=== PATIENT | male | born 1940 | race Caucasian/White ===

== ENCOUNTER → 2017-01-21 | Outpatient (CLI) | payer OTHER | LOC: CAT 10:04 | DX: I25.10 Atherosclerotic heart disease of native coronary artery without angina pectoris (principal); I70.0 Atherosclerosis of aorta ==

== ENCOUNTER 2018-07-03 15:40 | Emergency (ER) | payer OTHER ==
[~2018-07-03] VITALS: Ht 177.8 cm; Wt 69.0 kg
[2018-07-03 17:48] VITALS: BP 132/72
== END 2018-07-03 17:48 | disposition home or self-care (01) ==
LOC: ER 15:40
DX: R04.0 Epistaxis (principal); I48.91 Unspecified atrial fibrillation; E03.9 Hypothyroidism, unspecified

== ENCOUNTER → 2019-07-04 | Outpatient (CLI) | payer OTHER | LOC: CAT 07-03 14:15 | DX: J84.9 Interstitial pulmonary disease, unspecified (principal); I51.7 Cardiomegaly; I25.10 Atherosclerotic heart disease of native coronary artery without angina pectoris; M41.84 Other forms of scoliosis, thoracic region ==

== ENCOUNTER 2019-08-15 09:45 | Inpatient (IN) | payer OTHER ==
[~2019-08-15] VITALS: Ht 175.3 cm; Wt 60.6 kg
--- NOTE | ~2019-08-15 | EMS ---
[address] [address] EMS Patient Care Report Name: AARON SEVERINO Room #: REG CHASE Esqueda#: [id number] Admission: 08/15/19 Attend Phys: Discharge: Date of : 38 Report #: [id number] THIS REPORT FOR: //name// Report Transmitted: 08/15/2019 10:20 EMS Care Summary [facility] MED-ACT Incident [id number] @ 08/15/2019 08:54 Incident Location [address] [place] [address] [place] [address] Patient AARON SEVERINO Male, 78 Years 1940 Patient Address [address] [place] [address] [place] [address] Patient History Chronic Obstructive Pulmonary Disease (COPD),Hyperthyroidism,Atrial Fibrillation, Patient Allergies No known allergies, Patient Medications Levothyroxine, Diltiazem, Iron, Chief Complaint Dizziness Disposition Transported No Lights/[place] Reason Stroke/CVA Transported To [facility] Narrative Arrived on scene to find a 78 year old male patient that was sitting on a chair in the dining room. Patient was able to track EMS upon entering the room and was speaking in clear sentences. Patient had a negative stroke scale, He had 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 No slurred speech or inability to form sentences. He denied any chest pain, or shortness of breath, but was tachypneic, and shallow breathing. He was placed on a nasal cannula and tolerated it well. 12 lead ecg was unremarkable. He did present with tachycardia and hypotension. Patient explained that he attempted to go to the restroom and have a bowel movement. He was unable to and when he stood up he fell to the ground. His explained that he tends to always have low blood pressure, and receives nursing care at home daily. He has not been able to tolerate oral fluids and due to symptoms it is recommended that he be transported to the hospital. Patient and were very hesitant on being transported. EMS and fire remained on scene extended After explaining the extent of his symptoms and that this is much more that just a coincidental syncopal episode. He was experiencing on going symptoms and if he did not receive medical intervention he would continue to fall and could potentially be In much worse condition. After contacting the nursing service that cares for him during the day, and addressing the concerns that the patient had and wanting to stay at home and receive treatment at home. The nurse explained that she would not be able to treat him without physician orders and she would call and explain the situation to his physician but is unsure how long it would be before she received further instructions on how to treat him. After speaking with the nurse and the patient understanding the situation he consented to be transported and was given a fluid challenge with favorable out come upon arrival at the hospital. At destination report was given to ED RN at bedside and patient signed EPCR. Initial Vitals @09:28P: 89,R: 22,BP: 92/63,Pain: 0/10,MO Suspected: false @09:30P: 25,Pain: 0/10,GCS: 15,SpO2: 79, @09:08P: 145,R: 22,BP: 69/47,Pain: 0/10,GCS: 15,SpO2: 86,Revised Trauma: 10,MO Suspected: false @09:39P: 95,R: 18,BP: 101/69,Pain: 0/10,GCS: 15,SpO2: 99,Revised Trauma: 12,MO Suspected: false @09:12P: 105,R: 18,Pain: 0/10,GCS: 15,SpO2: 92,MO Suspected: false @09:17P: 111,R: 18,BP: 74/44,Pain: 0/10,GCS: 15,SpO2: 96,Revised Trauma: 10, @09:02P: 65,R: 22,BP: 66/40,Pain: 0/10,GCS: 15,SpO2: 78,Revised Trauma: 10,MO Suspected: false @09:07P: 111,R: 22,Pain: 0/10,GCS: 15, @09:36P: 68,R: 18,BP: 98/53,Pain: 0/10,GCS: 15,Glucose: 94,SpO2: 98,Revised Trauma: 12, [address] [address] EMS Patient Care Report Name: AARON SEVERINO Room #: REG CHASE Esqueda#: [id number] Admission: 08/15/19 Attend Phys: Discharge: Date of : 38 Report #: [id number] Assessments @09:12MENTAL:Person Oriented,Time Oriented,Event Oriented,Place Oriented,SKIN:Cold,Cyanotic,Pale,HEENT:LUNG SOUNDS:General: No Abnormalities,ABDOMEN:General: No Abnormalities,PELVIS//GI:EXTREMITIES:Capillary Refill: Right Upper: < 2 Sec,Capillary Refill: Left Upper: < 2 Sec,PULSE:Brachial: 2+ Normal,Radial: 2+ Normal,NEURO:@09:38MENTAL:Time Oriented,Person Oriented,Place Oriented,Event Oriented,SKIN:HEENT:LUNG SOUNDS:ABDOMEN:PELVIS//GI:EXTREMITIES:Capillary Refill: Right Upper: < 2 Sec,Capillary Refill: Left Upper: < 2 Sec,PULSE:Brachial: 2+ Normal,Radial: 2+ Normal,NEURO: Impression Syncope / Fainting Procedures @09:0712-Lead ECGResponse: UnchangedSucceeded@09:20Normal Saline (.9% NaCl) 25cc (20 ga) Site: Antecubital-RightResponse: ImprovedSucceeded@09:17Oxygen FlowRate: 4 Device: Nasal Cannula (NC) Response: ImprovedSucceeded Timeline 08:52,Call Received 08:52,Psap Call 08:54,Dispatched 08:55,En Route 09:00,On Scene 09:01,At Patient 09:02,BP: 66/40 M,PULSE: 65,RR: 22 R,SPO2: 78 Ox,ETCO2: ,BG: ,PAIN: 0,GCS: 15, 09:07,12-Lead ECG,Response: UnchangedSucceeded, 09:07,BP: / M,PULSE: 111,RR: 22 R,SPO2: Ox,ETCO2: ,BG: ,PAIN: 0,GCS: 15, 09:08,BP: 69/47 M,PULSE: 145,RR: 22 R,SPO2: 86 Ox,ETCO2: ,BG: ,PAIN: 0,GCS: 15, 09:12,BP: / M,PULSE: 105,RR: 18 R,SPO2: 92 Ox,ETCO2: ,BG: ,PAIN: 0,GCS: 15, 09:17,Oxygen FlowRate: 4 Device: Nasal Cannula (NC) Response: ImprovedSucceeded, 09:17,BP: 74/44 M,PULSE: 111,RR: 18 R,SPO2: 96 Ox,ETCO2: ,BG: ,PAIN: 0,GCS: 15, 09:20,Normal Saline (.9% NaCl) 25cc 20 ga Site: Antecubital-Right,Response: ImprovedSucceeded, 09:28,BP: 92/63 M,PULSE: 89,RR: 22 R,SPO2: Ox,ETCO2: ,BG: ,PAIN: 0,GCS: , 09:30,Depart Scene 09:30,BP: / M,PULSE: 25,RR: R,SPO2: 79 Ox,ETCO2: ,BG: ,PAIN: 0,GCS: 15, 09:36,BP: 98/53 M,PULSE: 68,RR: 18 R,SPO2: 98 Ox,ETCO2: ,B,PAIN: 0,GCS: 15, 09:39,BP: 101/69 M,PULSE: 95,RR: 18 R,SPO2: 99 Ox,ETCO2: ,BG: ,PAIN: 0,GCS: 15, 09:43,At Destination 10:00,Call Closed 10:00,Transfer Patient Disclaimer [address] [address] EMS Patient Care Report Name: AARON SEVERINO Room #: REG CHASE Esqueda#: [id number] Admission: 08/15/19 Attend Phys: Discharge: Date of : 38 Report #: [id number] v1.1 Copyright 2020 [employer] This EMS Care Summary contains data elements from the applicable legal record (which may be displayed differently). It is designed to provide pertinent information for the following purposes: continuity of care, clinical quality, and state data reporting. The complete legal record is available to ED staff and administrators of the receiving hospital in [employer] Patient Tracker. All data is provided "as is."
[2019-08-15 09:46] VITALS: BP 87/57
[2019-08-15] MEDS ORDERED: DILTIAZEM ER180 M2 PO (10:19)
[2019-08-15 10:20] LABS: ABSOLUTE NEUTROPHILS 2.6 thou/uL (1.4-8.2); BASOPHILS 1.5 % (0.0-2.0); EOSINOPHILS 0.5 % (0.0-3.0); HEMOGLOBIN 10.8 gm/dL (14.0-18.0); LYMPHOCYTES 11.5 % (24.0-44.0); MCHC 31.8 g/dL (28.0-37.0); MCV 75.5 fL (80.0-100.0); MONOCYTES 8.4 % (1.0-8.0); PLATELET COUNT 130 thou/uL (150-400); POLYS 78.1 % (36.0-66.0); RDW 17.1 % (10.5-14.5); WBC 3.3 thou/uL (4.0-11.0)
[2019-08-15] MEDS ORDERED: LEVOXYL50 MCG PO (10:23)
[2019-08-15] MEDS ORDERED: IRON18 M1 PO (10:24)
[2019-08-15] MEDS ORDERED: PREDNISONE 5 MG5 M1 PO (10:26)
[2019-08-15 10:27] LABS: ANION GAP 5 mmol/L (7-16); BUN 12 mg/dL (7-18); CALCIUM 8.9 mg/dL (8.5-10.1); CHLORIDE 101 mmol/L (98-107); CO2 29 mmol/L (21-32); CREATININE 0.8 mg/dL (0.7-1.3); GLUCOSE 111 mg/dL (74-106); POTASSIUM 4.2 mmol/L (3.5-5.1); SODIUM 135 mmol/L (136-145)
[2019-08-15] MEDS ORDERED: PROTONIX40 M2 PO (10:27)
[2019-08-15] MEDS ORDERED: FLOMAX0.4 MG PO (10:27)
[2019-08-15 10:35] LABS: TROPONIN-I <0.06 ng/mL (<0.06)
--- NOTE | 2019-08-15 10:35 | NUR ---
SPOKE WITH PT , ELSIE SEVERINO: STATED PT WAS ADMITTED TO [facility] IN [facility] [place]UL[place] FOR INCREASED # OF FALLS WAS THERE FOR 4 DAYS. WHILE IN HOSP CONTRACTED [employer] AND A FUNGAL INFECTION. STATES PT WAS REFUSING MOST FOOD WHILE IN HOSP AND WOULD MOSTLY ONLY EAT JELLO OFF HIS TRAY. SENT HOME FIR 3DAYS. THEN [facility] BUILD STREGNTH, STABILIZE LOW BP, AND BECOME MORE STEADY. THERE FOR 11 DAYS RETURNED HOME 08/12/19 AND HAD PT COMING INTO HOME. STATES HE HAD BEEN EATING WELL FOR HER AND DRINKING ALMOST ALL THE WATER HE WAS RECOMMENDED TO QDAY. NO OTHER SYMPTOMS UNTIL TODAY
[2019-08-15 13:54] VITALS: BP 104/75
[2019-08-15 14:14] VITALS: BP 123/74
[2019-08-15 15:13] VITALS: BP 119/76
--- NOTE | 2019-08-15 15:54 | EKG ---
[facility] [place] [address] ELECTROCARDIOGRAM REPORT Name: AARON SEVERINO Room #: 363-P ADM IN M.R.#: [id number] Admission: 08/15/19 Attend Phys: Bigg Ascencio MD Discharge: Date of : 38 Report #: [id number] THIS REPORT FOR: cc: Marino,Tyrone Pichardo,Tyrone Marie,Juan M Ramos MD ~ THIS REPORT FOR: //name// [facility] ED Test Date: 2019-08-15 Test Time: 09:50:02 Pat Name: AARON SEVERINO Department: Room: [facility] Gender: M Rn Bone Marrow Transplant: JMitzi : 1940 Requested By: Titi Birmingham Order Number: [id number] MD: Juan M Marie Measurements Intervals [place] Rate: 149 P: [place]: QRS: -51 QRSD: 93 T: -1 QT: 383 QTc: 603 Interpretive Statements Atrial fibrillation with rapid V-rate Paired ventricular premature complexes Left axis deviation Low voltage, extremity leads Probable anteroseptal infarct, old Borderline T abnormalities, inferior leads No previous ECG available for comparison Electronically Signed On 08-15-2019 15:52:52 CDT by Juan M Marie [email or web address] <ELECTRONICALLY SIGNED> By: Juan M Marie MD 08/15/19 1552 0950 0950 Juan M Marie MD /EPI
[2019-08-15 16:03] LABS: APTT 31.4 Seconds (24.5-32.8); INR 1.2; PROTIME 12.2 Seconds (9.3-11.4)
[2019-08-15 17:28] LABS: ALBUMIN 3.3 g/dL (3.4-5.0); DIRECT BILIRUBIN 0.2 mg/dL (<0.1-0.2); TOTAL BILIRUBIN 0.8 mg/dL (<0.1-1.0); TOTAL PROTEIN 6.9 g/dL (6.4-8.2)
--- NOTE | 2019-08-15 18:33 | NUR ---
ASSUMED CARE OF PT ON ARRIVAL TO UNIT AT APPROX 1530. PT AOX3 IN NO ACUTE DISTRESS. VOICING NO COMPLAINTS. VITALS STABLE. BREATHING COMFORTABLY ON 2L NC. DOWN FOR CT CURRENTLY. MED REC REQUEST FAXED TO [facility]. CARDIOLOGY CONSULTED FOR AFIB - NOW CONTROLLED AFIB ON TELE. GOOD APPETITE. USING URINAL. IV FLUIDS INFUSING PER ORDER. WILL CONT TO MONITOR.
[2019-08-15 20:35] VITALS: BP 99/66
[2019-08-15 23:27] VITALS: BP 116/77; BP 16/77
[2019-08-16 04:49] LABS: ANION GAP 7 mmol/L (7-16); BUN 9 mg/dL (7-18); CALCIUM 8.2 mg/dL (8.5-10.1); CHLORIDE 105 mmol/L (98-107); CO2 28 mmol/L (21-32); CREATININE 0.7 mg/dL (0.7-1.3); GLUCOSE 64 mg/dL (74-106); MAGNESIUM 1.7 mg/dL (1.8-2.4); SGOT 32 U/L (15-37); SGPT 15 U/L (30-65); SODIUM 140 mmol/L (136-145); TOTAL BILIRUBIN 0.9 mg/dL (<0.1-1.0); TOTAL PROTEIN 6.9 g/dL (6.4-8.2); TROPONIN-I <0.06 ng/mL (<0.06)
[2019-08-16 05:05] VITALS: BP 120/84
[2019-08-16 05:06] LABS: HEMOGLOBIN 10.7 gm/dL (14.0-18.0); MCH 24.4 pg (26.0-34.0); MCHC 31.6 g/dL (28.0-37.0); MCV 77.2 fL (80.0-100.0); RBC 4.4 mil/uL (4.50-6.00); RDW 17.3 % (10.5-14.5)
[2019-08-16 08:05] VITALS: BP 135/88
[2019-08-16 08:10] VITALS: BP 147/96
[2019-08-16 08:15] VITALS: BP 71/33
[2019-08-16 12:17] VITALS: BP 125/75
--- NOTE | 2019-08-16 13:16 | NUR ---
INITIAL ASSESSMENT: SW reviewed chart and spoke with nursing and attending physician. Pt is currently in Enhanced Isolation to r/o COVID-19. Pt is currently on O2. Pt with hx of pulmonary fibrosis/a-fib. Cardiology consulted. SW spoke with pt via phone. Introduced role of SW. Pt is alert/orientated x 4. Pt reports he lives at home with his . Prior to admission, pt was using a walker to assist with ambulation. Pt states he has a few steps that he is able to navigate independently. Pt was recently discharged home [facility] with HH services. Pt is unable to recall name of HH provider. Pt was not on O2 prior to admission. Pt's PCP is Dr. Tyrone Pichardo. SW attempted to reach pt's via phone ([phone]) to obtain name of HH agency. No option to leave voice message. RAS is following to assist as needed with discharge planning.
--- NOTE | 2019-08-16 14:31 | EKG ---
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: [facility] : 1940 Requested By: Bigg Ascencio Order Number: [id number] MD: Avi Ha Measurements Intervals [place] Rate: 112 P: [place]: QRS: -44 QRSD: 101 T: -1 QT: 369 QTc: 504 Interpretive Statements Atrial fibrillation Low voltage, extremity leads Compared to ECG 08/15/2019 09:50:02 No significant change was found Electronically Signed On 08-16-2019 14:29:27 CDT by Avi Ha [email or web address] <ELECTRONICALLY SIGNED> By: Avi Ha MD, FACC 08/16/19 1429 0808 0808 Avi Ha MD, [facility] /EPI
[2019-08-16 15:08] LABS: % SATURATION 14 % (20-39); IRON 31 ug/dL (65-175); TIBC 219 ug/dL (250-450)
[2019-08-16 15:24] LABS: FOLIC ACID 12.5 ng/mL (8.6-58.9)
[2019-08-16 20:01] VITALS: BP 117/81
[2019-08-17] VITALS (12 sets, daily range): BP systolic 77–127; BP diastolic 52–72
[2019-08-17 05:57] LABS: CREATININE 0.5 mg/dL (0.7-1.3); MAGNESIUM 1.6 mg/dL (1.8-2.4)
--- NOTE | 2019-08-17 06:27 | NUR ---
ASSESSMENT: PT TRAMSFERRED FROM [facility] WITH NEGATIVE RESULT OF COVID-19. PT IS ALERT AND ORIENT TIMES THREE. VSS, AFEBRILE. DENIES PAIN. DOES HAVE SOB WITH EXERTION WHILE IN BED. GROIN AREA RED, NYSTATIN POWDER ORDERED AND APPLIED TO HIS GROIN. AFIB PER MONITOR. DENIES SYNCOPE EPISODES. YET DID NOT GET OUT OF BED. WILL CONTINUE TO MONITOR.
--- NOTE | 2019-08-17 10:27 | 2DMMODE ---
[facility] [address] [place] [address] 2 D/M-MODE ECHOCARDIOGRAM Name: AARON SEVERINO Room #: 205-P ADM IN M.R.#: [id number] Admission: 08/15/19 Attend Phys: Bigg Ascencio MD Discharge: Date of : 38 Report #: [id number] THIS REPORT FOR: cc: Tyrone Pichardo MD, Bradley MD Lammoglia, Francisco J. MD ~ APPROVED REPORT Study performed: 08/17/2019 09:31:43 EXAM: Comprehensive 2D, Doppler, and color-flow Echocardiogram Patient Location: Bedside Room #: 205 Status: routine BSA: 1.58 HR: 81 bpm BP: 117/71 mmHg Rhythm: Atrial Fibrillation Other Information Study Quality: Good/patient sitting up in bed. Indications Afib with RVR, near syncope, cardiomegaly per Xray. Hx: Afib, COPD, ETOH abuse. 2D Dimensions RVDd: 43.28 mm IVSd: 10.02 (7-11mm) LVOT Diam: 24.97 (18-24mm) LVDd: 51.98 mm PWd: 9.75 (7-11mm) Ascending Ao: 44.54 (22-36mm) LVDs: 37.22 (25-40mm) Aortic Root: 47.10 mm Volumes Left Atrial Volume (Systole) Single Plane 4CH: 65.54 mL Single Plane 2CH: 69.98 mL LA ESV Index: 45.00 mL/m2 Aortic Valve AoV Peak Bull.: 1.31 m/s AO Peak Gr.: 8.35 mmHg LVOT Max P.71 mmHg LVOT Max V: 0.82 m/s MARINO Vmax: 3.07 cm2 [facility] [address] [place] [address] 2 D/M-MODE ECHOCARDIOGRAM Name: AARON SEVERINO Room #: [facility] ADM IN [facility].#: [id number] Admission: 08/15/19 Attend Phys: Bigg Ascencio MD Discharge: Date of : 38 Report #: [id number] Mitral Valve MV Decel. Time: 112.07 ms MV E Max Bull.: 1.04 m/s Pulmonary Valve PV Peak Bull.: 0.78 m/s PV Peak Gr.: 2.44 mmHg Tricuspid Valve TR Peak Bull.: 2.90 m/s TR Peak Gr.: 35.00 mmHg Left Ventricle The left ventricle is normal size. There is normal LV segmental wall motion. There is normal left ventricular wall thickness. Left ventricular systolic function is normal. LVEF is 55%. This study is not technically sufficient to allow evaluation of the LV diastolic function. Right Ventricle Right ventricle is at the upper limits of normal. The right ventricular systolic function is normal. Atria Left atrium is moderately dilated. Right atrium is mildly dilated. Aortic Valve The aortic valve is normal in structure. Leaflets are moderately calcified but have adequate excursion. Mild to moderate aortic regurgitation. Mitral Valve Mitral valve leaflets are mildly thickened and calcified. Mild to moderate mitral regurgitation. No evidence of mitral valve stenosis. Tricuspid Valve The tricuspid valve is normal in structure. Mild to moderate tricuspid regurgitation. Estimated PAP is 35mmHg plus the right atrial pressure. Pulmonic Valve The pulmonary valve is normal in structure. There is no pulmonic valvular regurgitation. [facility] [address] [place] [address] 2 D/M-MODE ECHOCARDIOGRAM Name: AARON SEVERINO Room #: 205-[facility] IN M.R.#: [id number] Admission: 08/15/19 Attend Phys: Bigg Ascencio MD Discharge: Date of : 38 Report #: [id number] Great Vessels Aortic root is dilated at 4.7cm. Ascending aorta is dilated at 4.5cm. IVC is not well visualized. Pericardium There is no pericardial effusion. <Conclusion> The left ventricle is normal size. LVEF is 55%. Right ventricle is at the upper limits of normal. Left atrium is moderately dilated. Right atrium is mildly dilated. The aortic valve is normal in structure. Leaflets are moderately calcified but have adequate excursion. Mild to moderate aortic regurgitation. Mitral valve leaflets are mildly thickened and calcified. Mild to moderate mitral regurgitation. The tricuspid valve is normal in structure. Mild to moderate tricuspid regurgitation. Estimated PAP is 35mmHg plus the right atrial pressure. The pulmonary valve is normal in structure. Ascending aorta is dilated at 4.5cm. There is no pericardial effusion. <ELECTRONICALLY SIGNED> By: Alvin Mcgee MD 08/17/19 1026 1026 1026 Alvin Mcgee MD /INF
--- NOTE | 2019-08-17 15:49 | NUR ---
Left another message for pt's spouse regarding HH agency that saw him recently. He is progressing. Will follow along for possible HH referral at [place].
[2019-08-18 00:33] LABS: URINE BILIRUBIN NEGATIVE (Negative); URINE BLOOD NEGATIVE (Negative); URINE CLARITY CLEAR; URINE COLOR YELLOW; URINE GLUCOSE-RANDOM* NEGATIVE (Negative); URINE KETONES NEGATIVE (Negative); URINE LEUKOCYTES-REFLEX NEGATIVE (Negative); URINE NITRITE-REFLEX NEGATIVE (Negative); URINE PROTEIN (DIPSTICK) NEGATIVE (Negative); URINE SPECIFIC GRAVITY >= 1.030 (1.005-1.035); URINE UROBILINOGEN 0.2 E.U./dl (0.2-1.0)
--- NOTE | 2019-08-18 02:46 | NUR ---
PROGRESS PT A/O X4 VSS. DENIES PAIN. TELE INTACT. IVF'S INFUSING ORDERED. PEG TUBE INTACT FLUSHES WITHOUT DIFFICULT BOLUS TUBE FEEDINGS CONTINUE. UA SENT TO LAB AWAITING STOOL SAMPLE FOR OCCULT BLOOD. GROIN RASH NOTED NYSTATIN POWDER APPLIED ORDERED, VOIDING QS PER URINAL. CONTINUE TO MONITOR.
[2019-08-18 04:40] LABS: CALCIUM 7.7 mg/dL (8.5-10.1); CREATININE 0.6 mg/dL (0.7-1.3); MAGNESIUM 1.6 mg/dL (1.8-2.4); POTASSIUM 4.4 mmol/L (3.5-5.1)
[2019-08-18 04:45] VITALS: BP 135/77
[2019-08-18 07:56] VITALS: BP 117/60
[2019-08-18 11:33] VITALS: BP 120/78; BP 130/77; BP 94/54
[2019-08-18 16:04] VITALS: BP 129/77
--- NOTE | 2019-08-18 16:38 | NUR ---
PT ALERT AND ORIENTED. VSS. DENIED HAVING PAIN OR DISCOMFORT. UP IN THE CHAIR THIS SHIFT. PARTICIPATED IN PHYSICAL THERAPY. EXERCISE OXIMETRY COMPLETED. SOB NOTED WITH ACTIVITY. WILL CONTINUE TO MONITOR.
[2019-08-18 19:45] VITALS: BP 101/62
[2019-08-19 00:36] VITALS: BP 117/73
--- NOTE | 2019-08-19 03:35 | NUR ---
PATIENT IS ADVANCING SLOWLY IN HIS CARE PLAN. VITAL SIGNS STABLE WITH PATIENT HAVING NO COMPLAINTS OF PAIN OR NAUSEA. BREATHING STABLE ON OXYGEN EVIDENCED BY ASSESSMENT AND SPOT OXYGENATION CHECKS. PATIENT IS SHORT OF AIR AND HAS BEEN GIVEN PRN BREATHING TREATMENTS TO LIMITED EFFECT. CONTINUE PLAN OF CARE.
[2019-08-19 04:04] VITALS: BP 123/75
[2019-08-19 05:58] LABS: ABSOLUTE NEUTROPHILS 2.8 thou/uL (1.4-8.2); BASOPHILS 0.6 % (0.0-2.0); EOSINOPHILS 0.1 % (0.0-3.0); HEMATOCRIT 32.4 % (42.0-52.0); HEMOGLOBIN 10.2 gm/dL (14.0-18.0); LYMPHOCYTES 10.5 % (24.0-44.0); MCH 24.3 pg (26.0-34.0); MCHC 31.4 g/dL (28.0-37.0); MCV 77.5 fL (80.0-100.0); MONOCYTES 8.7 % (1.0-8.0); PLATELET COUNT 144 thou/uL (150-400); POLYS 80.1 % (36.0-66.0); RBC 4.18 mil/uL (4.50-6.00); RDW 17.3 % (10.5-14.5); WBC 3.5 thou/uL (4.0-11.0)
[2019-08-19 06:15] LABS: ALBUMIN 2.8 g/dL (3.4-5.0); CALCIUM 8.4 mg/dL (8.5-10.1); CREATININE 0.5 mg/dL (0.7-1.3); MAGNESIUM 1.6 mg/dL (1.8-2.4); POTASSIUM 4.5 mmol/L (3.5-5.1); TOTAL BILIRUBIN 0.6 mg/dL (<0.1-1.0); TOTAL PROTEIN 6.8 g/dL (6.4-8.2)
[2019-08-19 07:52] VITALS: BP 122/71; BP 136/89; BP 88/56
[2019-08-19 10:38] LABS: BE(vivo) 3.8 mmol/L (-2 to +3); HCO3 30.8 mmol/L (22.0-26.0); PO2 87.6 mmHg (80.0-100.0); pH 7.336 (7.360-7.450); sO2 95.9 % (92.0-98.0)
[2019-08-19 11:24] VITALS: BP 130/81
[2019-08-19 16:02] VITALS: BP 116/65
--- NOTE | 2019-08-19 16:56 | NUR ---
ASSESSMENT CHARTED. PT ALERT AND ORIENTED. SOB WITH ACTIVITY. HAD LABOURED BREATHING THIS AM. PRN RT TREATMENT GIVEN. ONE TIME IV LASIX GIVEN. IV ABX INFUSED. PT DENIED HAVING PAIN. COUGHING NOTED WITH MEALS. ST CONSULTED. NEW ORDERS NOTED. PROGRESSING SLOWLY TOWARDS DISCHARGE GOAL. WILL CONTINUE TO MONITOR.
[2019-08-19 20:45] VITALS: BP 94/59
--- NOTE | 2019-08-19 22:55 | NUR ---
AROUND 2242 NURSE WAS CALLED TO PATIENTS ROOM WITH PATIENT COMPLAINING OF SHORTNESS OF AIR. PATIENT WAS ON ROOM AIR AND UNDER SLEEP DESAT STUDY. PATIENTS READING WAS 82-83% ON OXYGEN SATURATION MONITOR. NURSE PLACED PATIENT ON TWO LITERS NASAL CANNULA AND PLACED CALL TO RESPIRATORY THERAPIST. NURSE TO CONTINUE TO MONITOR.
--- NOTE | 2019-08-20 03:02 | NUR ---
ASSUMED PATIENT CARE AT 1845. VITAL SIGNS STABLE WITH PATIENT HAVING NO COMPLAINTS OF PAIN OR NAUSEA. PATIENT IS ALERT AND ORIENTED AND ABLE TO CALL APPROPRIATELY FOR NEEDS AND PARTICIPATE IN CARE. BREATHING STABLE ON LOW LEVEL OXYGEN EVIDENCED BY ASSESSMENT AND READINGS FROM CONTINUOUS SATURATION MONITOR. SWALLOW PRECAUTIONS FOLLOWED. CONTINUE PLAN OF CARE.
[2019-08-20 04:45] VITALS: BP 101/60
[2019-08-20 05:26] LABS: ALBUMIN 2.8 g/dL (3.4-5.0); CALCIUM 8.1 mg/dL (8.5-10.1); CREATININE 0.6 mg/dL (0.7-1.3); MAGNESIUM 1.8 mg/dL (1.8-2.4); POTASSIUM 4.1 mmol/L (3.5-5.1); TOTAL BILIRUBIN 0.7 mg/dL (<0.1-1.0); TOTAL PROTEIN 6.5 g/dL (6.4-8.2)
[2019-08-20 06:41] LABS: ABSOLUTE NEUTROPHILS 2.9 thou/uL (1.4-8.2); BASOPHILS 0.9 % (0.0-2.0); EOSINOPHILS 0.1 % (0.0-3.0); HEMATOCRIT 31.7 % (42.0-52.0); LYMPHOCYTES 15.5 % (24.0-44.0); MCH 24.2 pg (26.0-34.0); MCHC 31.5 g/dL (28.0-37.0); MCV 76.9 fL (80.0-100.0); MONOCYTES 9.7 % (1.0-8.0); PLATELET COUNT 147 thou/uL (150-400); POLYS 73.8 % (36.0-66.0); RBC 4.13 mil/uL (4.50-6.00); RDW 17.2 % (10.5-14.5)
[2019-08-20 08:53] VITALS: BP 111/69
[2019-08-20 10:32] VITALS: BP 105/70; BP 89/54
[2019-08-20 16:55] VITALS: BP 97/57
--- NOTE | 2019-08-20 18:19 | NUR ---
ASSESSMENT CHARTED. PT ALERT AND ORIENTED. VSS. DENIED HAVING PAIN OR DISCOMFORT. REPORT FEELING BETTER TODAY. SOB NOTED WITH ACTIVITY. RT TREATMENT AND ABX GIVEN SCHEDULED. NO CONCERNS AT THIS TIME. WILL CONTINUE TO MONITOR.
[2019-08-20 20:09] VITALS: BP 102/67
[2019-08-21] VITALS (7 sets, daily range): BP systolic 81–124; BP diastolic 46–75
--- NOTE | 2019-08-21 04:09 | NUR ---
PATIENT IS ADVANCING SLOWLY IN HIS CARE PLAN. VITAL SIGNS STABLE WITH PATIENT HAVING NO COMPLAINTS OF PAIN OR NAUSEA. FULLY ALERT AND ORIENTED, PATIENT IS ABLE TO CALL APPROPRIATELY FOR NEEDS AND PARTICIPATE IN CARE. BREATHING STABLE EVIDENCED BY SPOT OXYGENATION CHECKS AND ASSESSMENTS. PATIENT APPEARS TO BE LESS SHORT OF AIR THAN PREVIOUS SHIFT LAST NIGHT. SWALLOW PRECAUTIONS FOLLOWED. CONTINUE PLAN OF CARE.
[2019-08-21 06:11] LABS: CALCIUM 8.4 mg/dL (8.5-10.1); CREATININE 0.6 mg/dL (0.7-1.3); POTASSIUM 4.5 mmol/L (3.5-5.1)
--- NOTE | 2019-08-21 10:23 | NUR ---
Patient rec sat/exc on 08/17 need recent sat/exc to determine need for home oxygen. Cont plan for home with HH care.
--- NOTE | 2019-08-21 16:35 | NUR ---
PT CARE ASSUMED APPROX 0700. ASSESSMENTS CHARTED. PT DENIES PAIN. REPORTS SOA ON EXERTION. O2 NEEDS INCREASE WITH ACTIVITY. UNABLE TO TITRATE TO RA AT REST. ORTHOSTATIC BPs POSITIVE. VS OTHERWISE STABLE. PT WAS UP TO CHAIR THIS SHIFT. TOLERATING POC. FAMILY GIVEN CLINICAL UPDATES AND DENY QUESTIONS OR CONCERNS REGARDING POC. NO DISTRESS NOTED AT THIS TIME.
--- NOTE | 2019-08-22 04:55 | NUR ---
A/O X 4.DENIES PAIN.SOB WITH EXERTION AND DIZZINESS WHEN UP.O2 1L NC.ON NOCTURNAL OX THIS SHIFT.MONITOR SHOWS AFIB.POC CONTINUED.
[2019-08-22 05:33] VITALS: BP 120/66
[2019-08-22 09:03] VITALS: BP 107/67; BP 53/27; BP 88/61
[2019-08-22 10:57] VITALS: BP 109/64
--- NOTE | 2019-08-22 15:28 | NUR ---
Patient not stable for dc. Faxed oxygen and nebulizer prescription to [facility]. Sp with patient who is eager for home. sp with therapy and phys. Patient endurance not to baseline. He may benefit from rehab. in agreement and feels he would benefit to be stronger prior to coming home. [facility] consult.
--- NOTE | 2019-08-22 16:43 | NUR ---
PT CARE ASSUMED APPROX 0700. ASSESSMENTS CHARTED. PT DENIES PAIN AND SOA. VSS. UP WITH MIN ASSIST AND USE OF A WALKER. DISCHARGE PLAN CONTINUES TO BE RE-EVALUATED BASED ON O2 NEEDS AND MOBILITY NEEDS. REHAB CONSULT PUT IN THIS SHIFT. PT'S GIVEN CLINICAL UPDATE THIS SHIFT. SHE AND PT DENIED QUESTIONS OR CONCERNS REGARDING POC. PT TOLERATING POC. NO DISTRESS NOTED.
[2019-08-22 20:30] VITALS: BP 93/58
[2019-08-23] VITALS: BP 110/72
[2019-08-23 04:40] VITALS: BP 118/77
--- NOTE | 2019-08-23 05:53 | NUR ---
PT A&O X4 ABLE TO MAKE NEEDS KNOWN. FORGETFUL. DENIES PAIN SO FAR THIS SHIFT. ASSIST X1 WITH TRANSFERS/. CONT USES URINAL. MECH SOFT DIET. HTL. NO STRAWS. CONTINUES ON 2L O2 PER NC. NO ACUTE FINDINGS THIS SHIFT.
[2019-08-23 08:20] VITALS: BP 104/71; BP 128/76; BP 88/53
--- NOTE | 2019-08-23 10:36 | NUR ---
Received awake on bed. Due medications given as prescribed, able to swallow meds w/0 difficulty; on swallowing precaution, kept upright. A+Ox4, forgetful. Orthostatic BP obtained, Dr Prieto informed re: latest BP during his rounds. With O2 at 2lpm via nasal cannula. On heart monitoring, no complaints of chest pain, heaviness or crushing sensation. On mechanically altered chopped diet, honey thick liquids- tolerating well; no nausea, no vomiting and no abdominal pain noted. Able to use urinal, output measured and recorded accordingly. Assisted in ADLs. With NS at 100cc/hr, infusing well at L FA, on IV antibiotics. No complaints of pain made. For possible discharge to [facility] today, a/w hospitalist's rounds and discharge orders, pt very keen to go to rehab. Falls bundle in place. Seen by PT/OT. Seen by JOSSELINE oseguera video swallow test, pt taken down by ST Hernandez via wheelchair. To continue monitoring patient.
[2019-08-23] MEDS ORDERED: IRON325 PO (12:47)
[2019-08-23] MEDS ORDERED: IPRAT-ALBUT 0.5-3 ML INH (12:47)
[2019-08-23] MEDS ORDERED: MUCINEX600 MG PO (12:47)
[2019-08-23] MEDS ORDERED: AUGMENTIN 875-1 EACH PO (12:49)
--- NOTE | 2019-08-23 13:26 | NUR ---
Patient evaled by [facility] and accepted. patient agreeable to [facility] and updated of transfer today. no further needs
== END 2019-08-23 15:26 | DRG 189 ==
LOC: ER 09:45 → 3W 13:31 → 2N 13:31 → EROBS 13:31 → 3W 14:14 → 2N 08-16 19:39
PROVIDERS: Emergency Medicine; Internal Medicine; Nurse Practitioner; Pediatrics; ADMIT Internal Medicine
DX: J96.01 Acute respiratory failure with hypoxia (principal); D61.818 Other pancytopenia; J84.9 Interstitial pulmonary disease, unspecified; I48.20 Chronic atrial fibrillation, unspecified; J67.9 Hypersensitivity pneumonitis due to unspecified organic dust; Z68.1 Body mass index [BMI] 19.9 or less, adult; I95.1 Orthostatic hypotension; E03.9 Hypothyroidism, unspecified; I95.9 Hypotension, unspecified; J44.9 Chronic obstructive pulmonary disease, unspecified; K21.9 Gastro-esophageal reflux disease without esophagitis; R41.9 Unspecified symptoms and signs involving cognitive functions and awareness; E83.42 Hypomagnesemia; F10.20 Alcohol dependence, uncomplicated; D50.9 Iron deficiency anemia, unspecified; J84.10 Pulmonary fibrosis, unspecified; R63.4 Abnormal weight loss; G47.00 Insomnia, unspecified; F03.90 Unspecified dementia, unspecified severity, without behavioral disturbance, psychotic disturbance, mood disturbance, and anxiety; Z20.828 Contact with and (suspected) exposure to other viral communicable diseases; Z79.01 Long term (current) use of anticoagulants; Z87.891 Personal history of nicotine dependence
CPT/HCPCS: 10081; 10779; 10879

== ENCOUNTER 2019-08-23 10:10 | Inpatient (IN) | payer OTHER ==
[~2019-08-23] VITALS: Ht 175.3 cm; Wt 64.8 kg
--- NOTE | ~2019-08-23 | PLAN ---
[facility] [place] [address] REHAB UNIT PLAN OF CARE Name: AARON SEVERINO Room #: 511-P ADM IN M.R.#: [id number] Admission: 08/23/19 Attend Phys: Gutierrez Garcia MD Discharge: Date of : 36 Report #: [id number] THIS REPORT FOR: //name// CC: Tyrone Garcia DATE OF SERVICE: 08/25/2019 PROGRESS NOTE/OVERALL PLAN OF CARE SUBJECTIVE: The patient is seen back today in followup. He is in no distress. Last recorded temperature of 36.3, pulse 75, respirations 18, and blood pressure 97/52. The patient is alert. Nasal prong O2 is in place. He is min assist with sit to stand. Gait is contact guard 30 feet with a front-wheeled walker. Going up and down 4 stairs with mod assist. In occupational therapy, working with him on basic mobility and ADLs. He continues on nasal prong O2. He also has speech therapy involved working on swallowing, cognition, and communication issues. He is on a nectar thickened liquid diet. Working on cognitive issues with him. He has had [id number] memory deficits. ASSESSMENT: An 78-year-old male with the following problem list: 1. Medical complexity with generalized debilitation. 2. Acute hypoxic respiratory failure with interstitial lung disease. 3. Dysphagia, on thickened liquids. 4. Possible aspiration pneumonia. 5. Atrial fibrillation with rapid ventricular response. 6. Orthostatic hypotension, which is being monitored. 7. History of mild dementia. 8. Pancytopenia. 9. Anemia. PLAN: The overall plan of care is based on the preadmission screen, post-admission physician evaluation and information garnered from therapy assessments. 1. Estimated length of stay is probably at least 7-10 days. 2. Medical prognosis is reasonably good. 3. Anticipated interventions include the interdisciplinary acute inpatient rehabilitation program. 4. Anticipated functional outcomes would be for the patient to become modified independent with transfers, mobility, ADLs, improvement in cognition, so that he can return back to the home setting with his . He also needs to improve as far as swallowing. 5. Expected therapy by discipline includes PT, OT, and speech 1 hour per day [address] [address] REHAB UNIT PLAN OF CARE Name: AARON SEVERINO Room #: 511-P ADM IN .R.#: [id number] Admission: 08/23/19 Attend Phys: Gutierrez Garcia MD Discharge: Date of : 38 Report #: [id number] each five days a week throughout the duration of the acute inpatient rehabilitation stay. By: [id number] Gutierrez Garcia MD /MONSE
[~2019-08-23 10:10] MED LIST: DILTIAZEM ER180 M2 PO; FLOMAX0.4 MG PO; IRON18 M1 PO; LEVOXYL50 MCG PO; PREDNISONE 5 MG5 M1 PO; PROTONIX40 M2 PO
[2019-08-23] MEDS ORDERED: IPRAT-ALBUT 0.5-3 ML INH (12:47)
[2019-08-23] MEDS ORDERED: IRON325 PO (12:47)
[2019-08-23] MEDS ORDERED: MUCINEX600 MG PO (12:47)
[2019-08-23] MEDS ORDERED: AUGMENTIN 875-1 EACH PO (12:49)
--- NOTE | 2019-08-23 14:37 | NUR ---
Pt being admitted to [facility] acute rehab from CCU today. The pt is a&0x4 and lives with his . He was admitted to the hospital due to orthostatic bp issues, syncope, and hypotension. The pt was on service with [facility] prior to admission and has recently been at [facility]. 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 He has a rwalker which he was using prior to admission and a cane and bath bench. He has a few steps to enter the home. The acute care case mngr had faxed a script to [facility] to arrange for home o2 and a nebulizer and this has been put on hold. [facility] notified of dc to acute rehab and they will need to be contacted once he is ready for dc home. They will need an updated progress notes and qualifying sats. The pt's pcp is Dr. Tyrone Pichardo. [facility] is aware he is inpt and can accept him for resumption of hh at [place]. They will need orders faxed. Pt's updated by the unit cm. Pt and spouse agreeable to acute rehab admission. Goal is to return home at [place]. Will follow for resumption of HH and setup of home o2/nebulizer. Team conference next week to determine los.
--- NOTE | 2019-08-23 16:47 | NUR ---
ASSUMED CARE OF PT AT 1500 WHEN PT ARRIVED ON UNIT. REPORT RECEIVED FROM ALON HOOPER ON PREVIOUS UNIT PRIOR TO ADMISSION TO REHAB. CONSENTS CALLED, MEDICATIONS FAXED TO PHARMACY, ADMISSION HX AND ASSESSMENT COMPLETED, VITAL SIGNS, WEIGHT AND HEIGHT OBTAINED, FAMILY NOTIFIED OF ROOM CHANGE, PT ORIENTED TO UNIT AND ROOM. PT DENIES QUESTIONS OR CONCERNS, ADMISSION FORMS SIGNED. FALL PRECAUTIONS IN PLACE AND NURSING WILL CONTINUE TO MONITOR.
[2019-08-23 19:00] VITALS: BP 123/84
--- NOTE | 2019-08-24 02:05 | NUR ---
ASSESSED AT START OF SHIFT. PT DENIES PAIN N/V C/O NOT EATING DINNER. SMALL NECTAR THICK LIQUID OFFERED. URINAL BY BEDSIDE. PT ON 2L OF O2 ON NC. LUNGS SOUNDS COARSE, FALL PREC IN PLACE AND CALL LIGHT IN REACH WILL CONT WITH POC TILL EOS.
[2019-08-24 07:06] LABS: HEMATOCRIT 33.6 % (42.0-52.0); HEMOGLOBIN 10.3 gm/dL (14.0-18.0); MCHC 30.8 g/dL (28.0-37.0); MCV 77.9 fL (80.0-100.0); RBC 4.31 mil/uL (4.50-6.00); RDW 17.2 % (10.5-14.5); WBC 4.7 thou/uL (4.0-11.0)
[2019-08-24 07:14] LABS: CALCIUM 8.2 mg/dL (8.5-10.1); CREATININE 0.6 mg/dL (0.7-1.3); POTASSIUM 4.7 mmol/L (3.5-5.1)
[2019-08-24 08:00] VITALS: BP 125/81
--- NOTE | 2019-08-24 16:18 | NUR ---
ASSUMED CARES AT 0700. PT AWAKE, ALERT AND ORIENTED*4. DENIES PAIN. ORTHOSTATIC BP TAKEN THIS AM, LYING 125/81, SITTING 89/54 AND STANDING 67/36. PT WAS ASYPTOMATIC. HOSPITALIST NOTIFIED. BP MONITORED THROUGHOUT THERAPIES AND PT REMAINED ASYMPTOMATIC. LS COARSE, PT HAS A PRODUCTIVE COUGH, O2 SATS >95% ON 2L OXYGEN VIA NC. PILLS ADMINISTERED WHOLE IN APPLESAUCE AND TOLERATED WELL. ENCOURAGE ORAL FLUID INTAKE. Q1H VISUAL CHECKS. CALL LIGHT WITHIN REACH. FALL PRECAUTIONS IN PLACE
[2019-08-24 19:48] VITALS: BP 97/52
[2019-08-24 19:49] VITALS: BP 57/40
--- NOTE | 2019-08-25 03:18 | NUR ---
ORTHOSTATIC BP WITH DROP TO 87/40 WHEN STANDING, TOLERATING WELL BUT BECAME UNCOMFORTABLE STANDING, BY THE TIME THE MACHINE TRIED 3 TIMES TO GET THE READING OF 87/40, HE WAS READY TO SIT BACK DOWN. TOLERATING MEDS INCLUDING PRN SENNEKOT JUST ENOUGH TO SWALLOW THEM IN PUDDING AND THEN DRANK 2 CONTAINERS OF NECTAR THICK WATER. USING URINAL TWICE SO FAR THIS SHIFT
[2019-08-25 08:00] VITALS: BP 114/59
[2019-08-25 08:01] VITALS: BP 75/48
[2019-08-25 08:02] VITALS: BP 52/37
--- NOTE | 2019-08-25 11:04 | H ---
[facility] [place] [address] HISTORY AND PHYSICAL Name: AARON SEVERINO Room #: 511-P ADM IN M.R.#: [id number] Admission: 08/23/19 Attend Phys: Gutierrez Garcia MD Discharge: Date of : 38 Report #: [id number] THIS REPORT FOR: cc: Tyrone Pichardo MD, Bradley MD Smithson,Gutierrez Urias MD ~ CC: Tyrone Garcia DATE OF SERVICE: 08/23/2019 HISTORY AND PHYSICAL/POST ADMISSION PHYSICIAN EVALUATION HISTORY OF PRESENT ILLNESS: The patient is an 78-year-old white male, who has been admitted for acute in-hospital inpatient rehabilitation. The patient was originally admitted to [facility] on 08/15/2019 with weakness. He was found to have acute hypoxic respiratory failure likely due to pulmonary fibrosis and possible aspiration pneumonia. COVID-19 was ruled out. He was seen by Pulmonary Medicine and treated with IV antibiotics, nebulizers, O2. He was seen by Cardiology for atrial fibrillation with rapid ventricular rate, now rate controlled. He has been monitored regarding orthostatic blood pressure. He was given a fluid bolus. He was noted to have medical complexity with generalized debilitation and to be at a lower functional level within his premorbid status. He has now been admitted for acute inpatient rehabilitation. PAST MEDICAL HISTORY: Prior medical history includes lung disease, atrial fibrillation, COPD, hypothyroidism, alcoholism, gastritis, and past smoker. FAMILY HISTORY: Noncontributory. HABITS: Past history of tobacco abuse, quit greater than a year ago. Alcohol use; daily beer drinker. MEDICATIONS: Please see the full medication listing. SOCIAL HISTORY: The patient lives with his in a house, 2 steps and then all on one level, use to front-wheeled walker most of the time. He was independent with ADLs and shared IADLs. ALLERGIES: No known drug allergies. REVIEW OF SYSTEMS: No complaints of chest pain, shortness of breath or abdominal discomfort. PHYSICAL EXAMINATION: GENERAL: An 78-year-old white male in no obvious distress. [address] [address] HISTORY AND PHYSICAL Name: AARON SEVERINO Room #: 511-[facility] IN M.R.#: [id number] Admission: 08/23/19 Attend Phys: Gutierrez Garcia MD Discharge: Date of : 38 Report #: [id number] VITAL SIGNS: Last recorded temperature 98.1, pulse 92, respirations 22 and blood pressure 128/76. The patient is alert, pleasant. HEENT: Appeared to be benign. NEUROLOGIC: Cranial nerves grossly intact. Facies are symmetric. He follows basic commands without difficulty. Functional range of motion of both upper extremities without obvious focal weakness. DTRs are trace to 1. Lower extremities, no focal calf swelling, functional range of motion, strength is grade 4-/5. DTRs are trace to 1. CHEST: Sounded clear to auscultation. Some diffuse decreased breath sounds. CARDIOVASCULAR: Sounded irregularly irregular. ABDOMEN: Bowel sounds positive, nontender. GENITOURINARY AND RECTAL: Deferred. EXTREMITIES: No distal lower extremity edema. Functionally, he has been min assist with basic transfers, min assist ambulated short distance with a walker. He is on a nectar thick liquid diet with some dysphagia that is noted. ASSESSMENT: An 78-year-old white male with the following problem list: 1. Medical complexity with generalized debilitation. 2. Acute hypoxic respiratory failure with interstitial lung disease. 3. Dysphagia, on thickened liquids. 4. Possible aspiration pneumonia. 5. Atrial fibrillation with rapid ventricular response. 6. Orthostatic hypotension, which will continue to be monitored. 7. History of mild dementia. 8. Pancytopenia. 9. Anemia. 10. Hypothyroidism. PLAN: The patient has been admitted for acute in-hospital inpatient rehabilitation. From a post admission physician evaluation perspective, there are no relevant changes since the preadmission screening. Please see the above review of prior and current medical and functional conditions and comorbidities. Please see the patient's previous and current functional status. As far as risk of complications, the patient has multiple medical comorbidities as noted above. Initial plan of care involves the interdisciplinary acute inpatient rehabilitation program. Measurable functional goals would be for the patient to become modified independent with transfers, mobility, ADLs and to improve as far as his swallowing and cognition, so that he can hopefully return back to his prior living situation. Prognosis is reasonably good with estimated length of stay probably at least 7 days to 10 days pending progress. Potential barriers would include his multiple medical comorbidities and decreased functional status. The patient meets diagnostic criteria for an acute in-hospital inpatient rehabilitation stay. He meets the medical necessity criteria. We will have the [address] [address] HISTORY AND PHYSICAL Name: AARON SEVERINO Room #: 511-P [facility] IN M.R.#: [id number] Admission: 08/23/19 Attend Phys: Gutierrez Garcia MD Discharge: Date of : 38 Report #: [id number] wig sales consultant physicians continue to follow. He does have the tolerance for therapies and has appropriate discharge goals back to the home setting. <ELECTRONICALLY SIGNED> By: Gutierrez Garcia MD 08/25/19 1104 [id number] Gutierrez Garcia MD /
--- NOTE | 2019-08-25 15:55 | NUR ---
ASSUMED CARES AT 0700. PT AWAKE, ALERT AND ORIENTED*4. DENIES PAIN. ORTHOSTATIC BP TAKEN (SEE VITALS). PT C/O DIZZINESS BRIEFLY THIS AM WHEN HE GOT UP BUT RESOLVED AFTER HE LAYED BACK DOWN. WILL CONTINUE TO MONITOR. PUSHING FLUIDS AND MIDODRINE ADMINISTERED ORDERED. HYDROCORTISONE CREAM APPLIED TO POSTERIOR NECK AND RIGHT KNEE ( PT ITCHING AREAS). PT UP WITH MOD ASSIST, GB AND WALKER AND TOLERATED WELL. Q1H VISUAL CHECKS. CALL LIGHT WITHIN REACH. FALL PRECAUTIONS IN PLACE
[2019-08-25 20:17] VITALS: BP 109/63
--- NOTE | 2019-08-26 01:29 | NUR ---
PT ASSESSMENT COMPLETED AND VSS. MEDS GIVEN ORDERED AND WELL TOLERATED. FALL PRECUATIONS IN PLACE. VOIDING LARGE AMOUNT OF YELLOW URINE PER URINAL. ASST WITH REPOSITION FOR COMFORT. DENIES NEEDS. SLEEPING WELL. NO C/O OF FEELING DIZZY AT THIS TIME. WILL CONTINUE TO MONITOR FREQUENTLY.
[2019-08-26 07:20] VITALS: BP 113/72
[2019-08-26 08:00] VITALS: BP 113/72
--- NOTE | 2019-08-26 16:52 | NUR ---
ASSUMED CARES AT 0700. REPORTS SLEPT FAIR LAST NIGHT. PT AWAKE, ALERT AND ORIENTEDX 4. ABLE TO VOICE HIS NEEDS. DENIES PAIN. ORTHOSTATIC BP TAKEN. DENIES DIZZINESS. CONTINUE TO BE ON MIDODRINE AND IT HELPS. B/P 113/72, HR 77 THIS AM. LS COARSE ON UPPER. DIMINISHED ON BASES ENCOURAGED DEEP BREATHING. O2 SATS >96% ON 2L OXYGEN VIA NC. PILLS ADMINISTERED WHOLE IN APPLESAUCE AND TOLERATED WELL. ENCOURAGE ORAL FLUID INTAKE. CONTINUE TO BE ON NECTAR THICKNER. USES URINAL INDEPENDENTLY. PT UP AND PARTICIPATES WITH THERAPY SCHEDULED. HAD BM TODAY. OFFERED SPIRITUAL AND SUPPORTIVE CARE. REASSESSMENT PER CHART. MEDS GIVEN. PT CONTINUE TO BE ON PO ABT FOR PNEUMONIA. HAS RASHES ON NECK AND BACK, DR. KUO AWARES. HYDROCOTISONE CREAM APPLIED. PT UP WITH WALKER/GB. SITTING IN RECLINER EATING DINNER. CALLED EARLIER TO ASK FOR UPDATE. QUESTIONS WERE ANSWERED. Q1H VISUAL CHECKS. CALL LIGHT WITHIN REACH. FALL PRECAUTIONS IN PLACE. WILL CONTINUE TO MONITOR.
[2019-08-26 19:45] VITALS: BP 112/62
--- NOTE | 2019-08-26 23:48 | NUR ---
PT ALERT AND ORIENTED X 4. 02 ON AT 2L PER NC CONT. PT SOB WITH EXERTION. PT DENIES PAIN OR DISCOMFORT. BED ALARM ON FOR SAFETY. PT APPEARS TO BE SLEEPING ON HOURLY ROUNDS.
[2019-08-27 07:05] VITALS: BP 90/45
--- NOTE | 2019-08-27 14:31 | NUR ---
ASSUMED CARES AT 0700. PT AWAKE, ALERT AND ORIENTED*4. DENIES PAIN. HYPOTENSIVE (BP 90/47 THIS AM), PUSHED FLUIDS AND MIDODRINE ADMINISTERED PER ORDER, THIGH HIGH TEDHOSE IN PLACE. CONTINUES TO HAVE A RASH BEHIND NECK, HEAD, RIGHT KNEE AND LEFT ANKLE, CORTISONE CREAM APPLIED PER ORDER. PT UP WITH 1 MIN ASSIST, GB AND WALKER AND TOLERATED WELL. MEALS WITH SUPERVISION. Q1H VISUAL CHECKS. CALL LIGHT WITHIN REACH. FALL PRECAUTIONS IN PLACE
[2019-08-27 19:00] VITALS: BP 105/74
--- NOTE | 2019-08-28 02:31 | NUR ---
PT CARE ASSUMED AT 1915 WITH PT RECIEVING BREATHING TREATMENT.PT IS A/O X4.PT IS UP WITH X1 ASSIST.PT USES URINAL DURING SHIFT.PT TAKES MIDORINE FOR ORTHOSTATIC HYPOTENSION.PT ON NECTAR THICKEN LIQUIDS.PT TAKES MEDICATION WHOLE IN PUDDING.PT IS ON 2L OF O2 NASAL CANULA.PT C/O ITCHING AND HYDROCORTISONE CREAM APPLIED SCHEDULED.WILL CONTINUE TO MONITOR
[2019-08-28 07:20] VITALS: BP 109/67
[2019-08-28 07:34] VITALS: BP 108/67
--- NOTE | 2019-08-28 09:56 | NUR ---
ASSUMED CARES AT 0700. REPORTS SLEPT GOOD LAST NIGHT. PT AWAKE, ALERT AND ORIENTEDX4. ABLE TO VOICE HIS NEEDS. DENIES PAIN. HYPOTENSIVE (BP 108/67 THIS AM), PUSHED FLUIDS AND MIDODRINE ADMINISTERED PER ORDER, THIGH HIGH TEDHOSE IN PLACE. REASSESSMENT PER CHART. HAS SOB WITH EXERTION. SAT 98% ON 2L. CONTINUE TO BE ON BREATHING TX AND PO ABT FOR PNEUMONIA. DENIES COUGH REFUSES MUCINEX SCHEDULE. WILL ASK DOCTOR TO CHANGE TO PRN. CONTINUES TO HAVE A RASH BEHIND NECK, HEAD, RIGHT KNEE AND LEFT ANKLE, CORTISONE CREAM APPLIED PER ORDER. PT UP WITH 1 MIN ASSIST, GB AND WALKER AND TOLERATED WELL. MEALS WITH SUPERVISION. ST IS WORKING ON VITAL STIM WITH PT NOW. CONTINUE TO BE ON NECTAR THICK. MEDS GIVEN WITH YOGURT. ASSISTED PT BATHROOM HAD LARGE LOOSE BM THIS AM. USES URINAL INDEPENDENTLYL. OFFERED SUPPORTIVE CARE. ENCOURAGE PT TO VOICE HIS NEEDS. Q1H VISUAL CHECKS. CALL LIGHT WITHIN REACH. FALL PRECAUTIONS IN PLACE. WILL CONTINUE TO MONITOR.
[2019-08-28 11:49] VITALS: BP 97/62
[2019-08-28 18:55] VITALS: BP 103/61
--- NOTE | 2019-08-29 02:50 | NUR ---
Assumed pt care at 1900. A/OX4,VSS. Denies pain on assessment but c/o rash on neck/left heel,topical cream applied as ordered with some relief reported. Pt is continent of B&B,voiding per urinal at [facility]. Fall precautions in place, calls approp for help. Resting quietly at this time w/o distress noted,oxygen in place. Will continue to monitor pt.
[2019-08-29 06:21] VITALS: BP 109/68
[2019-08-29 08:00] VITALS: BP 106/56
--- NOTE | 2019-08-29 14:01 | NUR ---
team meeting, recommendation : current on diet mech soft with nectar thick, cont working with speech. dc 5/5 [facility] (pt, ot, st with vital stim and nursing). check and see if that is pt fww is with him. possible will need o2 and neb from [facility] emergency department. will cont following as needed for dc needs.
--- NOTE | 2019-08-29 14:55 | NUR ---
ASSUMED CARE AT 0700. PATIENT IS ALERT AND ORIENTED X4, BUT FORGETFUL. PATIENT RUIZ'S, COLLET DRILLER ARE EQUAL. LUNGS ARE DEMINISHED WITH A NON-PRODUCTIVE COUGH. PATIENT HAS 02 AT 2L PER N/C. PATIENT HAS RASH TO HIS NECK, BEHIND HIS RIGHT EAR, ON HIS RIGHT LEG AND ANKLE. BETAMETHAZONE, CLORTRAMAZOLE OINTMENT APPLIED TO THE ABOVE AREAS. FALL AND SAFETY PROTOCOLS IN PLACE. DENIES PAIN AT THIS TIME. CONTINUES TO PROGRESS TOWARDS D/C GOALS. WILL CONTINUE TO MONITER.
--- NOTE | 2019-08-29 16:00 | NUR ---
FAXED REFERRAL TO [facility] RECEIVED CONFIRMATION AND LEFT MSG WITH [facility] IN INTAKE. DP TO FOLLOW.
[2019-08-29 19:15] VITALS: BP 113/73
--- NOTE | 2019-08-29 23:40 | NUR ---
PT ASSESSMENT COMPLETED AND VSS. MEDS GIVEN ORDERED AND WELL TOLERATED. TOLERATED NECTOR THICK WATER WITH SUPERVISION. PT DISCOURAGED ABOUT NOT BEING ABLE TO GO HOME SOON. PROVIDED MUCH EMOTIONAL SUPPORT. SAT WNL ON NC. SLEEPING WELL. ASST WITH REPOSITION FOR COMFORT. VOIDING MODERATE AMOUNT OF YELLOW URINE IN URINAL. WILL CONTINUE TO MONITOR FREQUENTLY.
[2019-08-30 09:12] VITALS: BP 103/59
--- NOTE | 2019-08-30 11:34 | NUR ---
ASSUMED CARE AT 0700. REPORTS SLEPT GOOD.PATIENT IS ALERT AND ORIENTED X4, BUT FORGETFUL. ABLE TO VOICE HIS OWN NEEDS. REASSESSMENT PER CHART. PATIENT RUIZ'S, ADMINISTRATOR OF HOME HEALTH ARE EQUAL. LUNGS ARE DIMINISHED WITH A NON-PRODUCTIVE COUGH. CONTINUE TO BE ON MUCINEX. PATIENT HAS 02 AT 2L PER N/C. PATIENT HAS RASH TO HIS NECK, BEHIND HIS RIGHT EAR, ON HIS RIGHT LEG AND ANKLE. BETAMETHAZONE, CLORTRAMAZOLE OINTMENT APPLIED TO THE ABOVE AREAS. PT IS ON NECTAR THICKENER CONTINUE WITH VITAL STIM WITH SPEECH THERAPIST. PT IS IN GOOD SPIRIT, PLEASANT AND PARTICIPATE WELL WITH THERAPIST. CONTINUE TO BE ON MIDODRINE TID. VSS. FALL AND SAFETY PROTOCOLS IN PLACE. DENIES PAIN AT THIS TIME. CONTINUES TO PROGRESS TOWARDS D/C GOALS. WILL CONTINUE TO MONITOR.
[2019-08-30 19:33] VITALS: BP 108/64
--- NOTE | 2019-08-31 01:24 | NUR ---
ASSUMED CARE AROUND 1900, PT A&O X 4, NO ACUTE DISTRESS DURING SHIFT. VSS, O2 ON 2L VIA NC. PT DENIES ANY PAIN OR DISCOMFORT. MEDS GIVEN WITH APPLESAUCE. TOPICAL OINTMENTS FOR RASH TO NECK, KNEES AND ANKLE APPLIED. INCONTINENT AT TIMES, USES URINAL, BM TODAY DURING DAYSHIFT. PT SLEEPING, CALL LIGHT WITHIN REACH, WILL CONTINUE TO MONITOR PER POC.
[2019-08-31 05:59] LABS: HEMATOCRIT 33.2 % (42.0-52.0); HEMOGLOBIN 10.4 gm/dL (14.0-18.0); MCH 24.6 pg (26.0-34.0); MCHC 31.4 g/dL (28.0-37.0); MCV 78.1 fL (80.0-100.0); PLATELET COUNT 171 thou/uL (150-400); RBC 4.25 mil/uL (4.50-6.00); RDW 17.1 % (10.5-14.5); WBC 3.9 thou/uL (4.0-11.0)
[2019-08-31 06:13] LABS: CALCIUM 8.7 mg/dL (8.5-10.1); CREATININE 0.6 mg/dL (0.7-1.3); MAGNESIUM 1.8 mg/dL (1.8-2.4); POTASSIUM 4.8 mmol/L (3.5-5.1)
[2019-08-31 08:27] LABS: ABSOLUTE NEUTROPHILS 2.5 thou/uL (1.4-8.2); PLATELET ESTIMATE NORMAL
--- NOTE | 2019-08-31 18:12 | NUR ---
ASSUMED CARE OF PT AT 0700. PT IS A&OX4, FORGETFUL, VITAL SIGNS ARE STABLE. DENIES PAIN, PARTICIPATED IN SCHEDULED THERAPIES. 2 LITERS OF O2 VIA NC. REDNESS NOTED BEHIND EARS THIS SHIFT, EAR PROTECTORS PLACED ON O2 TUBING, NURSING WILL CONTINUE TO MONITOR SITES. FALL PRECAUTIONS IN PLACE AND NURSING WILL CONTINUE TO MONITOR.
[2019-08-31 20:08] VITALS: BP 104/53
--- NOTE | 2019-08-31 23:25 | NUR ---
PT ASSESSMENT COMPLETED AND VSS. MEDS GIVEN ORDERED AND WELL TOLERATED. FALL PRECAUTIONS IN PLACE. PT TOLERATING NECTOR THINK WATER. VOIDING MODERATE AMOUNT PER URINAL. CREAM APPLIED ON RASH. PT STATES THAT HE THINKS HIS RASH LOOKS BETTER TODAY. ASST WITH REPOSITION FOR COMFORT USING PILLOWS. SLEEPING WELL. WILL CONTINUE TO MONITOR FREQUENTLY.
[2019-09-01 08:00] VITALS: BP 102/57
--- NOTE | 2019-09-01 14:38 | NUR ---
ASSUMED CARE OF PT AT 0700. PT IS A&OX4, VITAL SIGNS ARE STABLE. PT DENIES PAIN AND PARTICIPATED IN SCHEDULED THERPAIES. PT REPORTED SOME "SORENESS" BEHIND EARS BILATERALLY, MILDLY RED, CANNULA TUBE PADS PLACED TO PREVENT BREAKDOWN. O2 AT 2L AND O2 SATS STABLE. ORDERED OINTMENT APPLIED TO RASH ON NECK. CALLED SD FOR UPDATE PER PT REQUEST. PT PARTICIPATED IN SCHEDULED THERAPIES. FALL PRECAUTIONS IN PLACE AND NURSING WILL CONTINUE TO MONITOR.
--- NOTE | 2019-09-01 18:28 | HC ---
[facility] [place] [address] CONSULTATION Name: AARON SEVERINO Room #: 511-P ADM IN M.R.#: [id number] Admission: 08/23/19 Attend Phys: Gutierrez Garcia MD Discharge: Date of : 38 Report #: [id number] THIS REPORT FOR: cc: Tyrone Pichardo MD, Bradley MD Althoff,Nikos Harrell MD ~ CC: Tyrone Garcia DATE OF SERVICE: 08/28/2019 CHIEF COMPLAINT: Dermatitis. HISTORY OF PRESENT ILLNESS: This is an 78-year-old male patient with a history of atrial fibrillation, hypothyroidism and daily alcohol consumption was admitted on 08/15/2019 for near syncope. He also had hypoxic respiratory failure, was started on IV antibiotics and breathing treatments. He is admitted on the inpatient rehabilitation unit and I have been asked to see him with regard to a rash that has developed on his neck, ankle and knee area. The patient denies pain. Notes some mild amount of pruritus, is not sure as to how or why it began. PAST MEDICAL HISTORY: Positive for atrial fibrillation, hypothyroidism and COPD. SOCIAL HISTORY: The patient drinks 2-3 beers per day. He is a previous smoker, quit greater than a year ago, having smoked 2 packs per day. FAMILY HISTORY: Noncontributory. MEDICATIONS: Midodrine, albuterol, diltiazem, ferrous sulfate, mycophenolate, prednisone, tamsulosin, levothyroxine, pantoprazole, acetaminophen and Augmentin. ALLERGIES: No known drug allergies. REVIEW OF SYSTEMS: CONSTITUTIONAL: The patient denies fever, chills, or weight loss. NEUROLOGICAL: The patient denies focal weakness, numbness or tingling. EYES: The patient denies visual changes, redness, or drainage. ENT: The patient denies earache, nasal drainage, sore throat. CARDIOVASCULAR: The patient denies chest pain, palpitations or diaphoresis. PULMONARY: The patient denies cough or shortness of breath. GASTROINTESTINAL: The patient denies nausea, vomiting, diarrhea or abdominal pain. ORTHOPEDIC: The patient denies pain or swelling of the extremities, notes some [facility] [address] [place] [address] CONSULTATION Name: AARON SEVERINO Room #: 511-P [facility] IN M.R.#: [id number] Admission: 08/23/19 Attend Phys: Gutierrez Garcia MD Discharge: Date of : 38 Report #: [id number] generalized stiffness and limited mobility. DERMATOLOGIC: The patient does complain of a rash to the back of his neck, his right knee and ankle area. ENDOCRINE: The patient denies heat or cold intolerance. Positive for ____ and pyuria. Other systems in a 14-point review of systems are negative. PHYSICAL EXAMINATION: VITAL SIGNS: Include temperature 36.5, pulse 96, respiratory rate of 22, blood pressure is 97/62. GENERAL: This is a somewhat chronically ill-appearing male patient who appears to be in minimal distress. HEENT: Head normocephalic. Nose and throat are clear. NECK: Demonstrates an erythematous patch along the back of his neck. It is not warm or indurated. A little bit of scaling is noted. LUNGS: Clear. ABDOMEN: Soft. HEART: Regular. EXTREMITIES: Show trace edema. He has a maculopapular erythematous dermatitis to his right ankle and right knee area. There appears to be perhaps a possible fungal component based on its appearance. None of these areas appear to be infected. CLINICAL IMPRESSION: 1. Dermatitis to the posterior neck, right ankle and knee with a suspected fungal component. 2. General debility and deconditioning. 3. Acute hypoxic respiratory failure likely due to pulmonary fibrosis. 4. History of atrial fibrillation with rapid ventricular response. 5. Pancytopenia. RECOMMENDATIONS: At this point in time, we will recommend topical Lotrisone cream to the affected areas to be applied twice daily. We will recommend continuation of his current medications and aggressive physical therapy and occupational therapy to regain mobility and strength. We will recommend continued aggressive nutritional support. I appreciate being asked to see him in consultation. <ELECTRONICALLY SIGNED> By: Nikos Wang MD 09/01/19 1828 [id number] Nikos Wang MD /nt
[2019-09-01 19:45] VITALS: BP 115/60
--- NOTE | 2019-09-02 04:07 | NUR ---
Pt. rested quietly at short intervals during the night when checked on during the night. He does have a rash with some redness to bilateral feet and ankles. Lotrisone cream applied and pt. c/o itchiness. Genny CORONA called and notified. New order for one time benadryl (see emar). Benadryl effective. Bed alarm is on.
[2019-09-02 08:00] VITALS: BP 109/62
--- NOTE | 2019-09-02 17:58 | NUR ---
ASSUMED CARE OF PT AT 0700. PT IS A&OX3-4, FORGETFUL AND SOME IMPULSIVITY. VITAL SIGNS ARE STABLE. HR IRREGULAR, LUNG SOUNDS CLEAR, AND BOWEL SOUNDS ACTIVE. PT DENIES DIZZINESS, NAUSEA, OR LIGHTHEADEDNESS. RASH TO NECK, RIGHT KNEE AND RIGHT ANKLE, ORDERED OINTMENT APPLIED PER ORDERS. PT DENIES PAIN AND PARTICIPATED IN SCHEDULED THERAPIES. FALL PRECAUTIONS IN PLACE AND NURSING WILL CONTINUE TO MONITOR.
[2019-09-02 19:30] VITALS: BP 110/56
--- NOTE | 2019-09-03 04:33 | NUR ---
PT ASSESSMENT COMPLETED AND VSS. MEDS GIVEN ORDERED AND WELL TOLERATED. FALL PRECAUTIONS IN PLACE. VOIDING LARGE AMOUNT OF YELLOW URINE PER URINAL. CREAMS APPLIED TO RASH. ASST WITH REPOSITION FOR COMFORT USING PILLOWS. SLEEPING WELL. SAT WNL ON NC. WILL CONTINUE TO MONITOR FREUQENTLY. PT IMPULSIVE AT TIMES. HE MENTIONED THAT HE IS GETTING TIRED OF NEEDING TO CALL FOR HELP. VERY PLEASANT.
[2019-09-03 08:00] VITALS: BP 113/74
--- NOTE | 2019-09-03 13:54 | NUR ---
ASSUMED CARES AT 0700. PT AWAKE, ALERT AND ORIENTED*4. DENIES PAIN. VITALS STABLE. C/O DIZZINESS UPON STANDING THIS AM WHICH RESOLVED WHEN PT SAT DOWN. WILL CONTINUE TO MONITOR. CONTINUES TO HAVE A RASH BEHIND THE NECK, RIGHT KNEE AND RIGHT MEDIAL ANKLE, HYDROCORTISONE LOTION ADMINISTERED ORDERED. ASPIRATION PRECAUTION MAINTAINED, PT REMAINS ON NECTAR THICK LIQUIDS, CONTINUES TO PUSH FLUIDS. UP WITH 1 SBA, GB AND WALKER AND TOLERATED WELL. Q1H VISUAL CHECKS. CALL LIGHT WITHIN REACH. FALL PRECAUTIONS IN PLACE
[2019-09-03 19:40] VITALS: BP 112/58
--- NOTE | 2019-09-04 00:40 | NUR ---
PT ASSESSMENT COMPLETED AND VSS. MEDS GIVEN ORDERED AND WELL TOLERATED. FALL PRECAUTIONS IN PLACE. PT SAT IN HIS CHAIR EARLY DURING THE SHIFT WATCHING TV. CREAMS APPLIED ORDERED. ASST WITH REPOSITION FOR COMFORT USING PILLOWS. BARRIER CREAM APPLIED TO COCCYX. SAT WNL ON NC. PT DRINKING FLUIDS WELL AT HS. VOIDING PER URINAL. WILL CONTINUE TO MONITOR FREQUENTLY.
[2019-09-04 09:00] VITALS: BP 100/55
--- NOTE | 2019-09-04 12:08 | NUR ---
cm notified by bedside nurse that pt had his exercise stat with resp therapy and he going to require 2 L oxygen per nasal canula continuos. cm provided update to [facility], and will send of rx when received. pt anticipate dc 09/05/2019 tomorrow home with phomux.
--- NOTE | 2019-09-04 14:26 | NUR ---
ASSUMED CARES AT 0700. PT AWAKE, ALERT AND ORIENTED*4. DENIES PAIN. DENIES DIZZINESS. VITALS STABLE. LS CLEAR, COUGH PRODUCTIVE, SATS 92% ON 2L OXYGEN. REST AND EXERCISE THIS AM, PT REQUIRES 2L OXYGEN 24HRS. VIDEO SWALLOW DONE THIS AM, PT ASPIRATING SMALL AMOUNTS OF LIQUIDS IN ALL CONSTINENCIES BUT NOT WITH CHIN TUCKS PER EVERY SIP. PT IS NOW ON THIN LIQUIDS, WITH 100% SUPER SUPERVISION AND REQUIRES TO TUCK CHIN PRIOR TO SWALLOWING. PUSHING FLUIDS TOLERATED. THIGH HIGH SESAR HOSE IN PLACE. PT CONTINUES TO HAVE A RASH ON HIS NECK, BACK AND RIGHT KNEE, CONSULTED WITH DERMATOLOGY, THEY WILL BE HERE TO SEE PATIENT. Q1H VISUAL CHECKS. CALL LIGHT WITHIN REACH. TALKED WITH PATIENT'S OVER THE PHONE AND UPDATED HER ON ONGOING CARES AND NEEDS. PT TEACHING FOR DC BEGAN, PT'S WILL BE HERE TOMORROW AT [address], PT, OT AND NURSING. FALL PRECAUTIONS IN PLACE
--- NOTE | 2019-09-04 15:35 | NUR ---
FAXED REFERRAL TO [facility] FOR HOME O2 RECEIVED CONFIRMATION AND SPOKE WITH BOX SPRING MAKER SHE WILL HAVE SOMEONE CALL ME BACK. DP TO FOLLOW.
[2019-09-04 20:20] VITALS: BP 116/74
--- NOTE | 2019-09-05 02:30 | NUR ---
assumed care at approx 1900 evening 09/03. pt alert and oriented x4, appropriate and cooperative. pt in good mood stating he was looking forward to being discharged. pt took hs meds with applesauce tolerating well. 02 at 2l per n/c. pt denies pain. pt using urinal at bedside. pt appears to be sleeping soundly with hourly rounding checks. bed alarm on and call light in reach. will continue to monitor.
[2019-09-05 05:24] VITALS: BP 115/80
[2019-09-05 08:00] VITALS: BP 97/54
[2019-09-05 08:03] VITALS: BP 115/80
[2019-09-05] MEDS ORDERED: CELLCEPT 250 M250 MG PO (08:07)
[2019-09-05] MEDS ORDERED: LAMISIL AT 1% C12 G1 TOP ×2 (08:07→08:48)
[2019-09-05] MEDS ORDERED: MIDODRINE HCL 55 M1 PO ×2 (08:07→08:48)
[2019-09-05] MEDS ORDERED: IPRAT-ALBUT 0.5-3 ML INH ×2 (08:07→08:48)
[2019-09-05] MEDS ORDERED: MUCINEX600 MG PO (08:07)
[2019-09-05] MEDS ORDERED: PROTONIX40 M2 PO (08:07)
[2019-09-05] MEDS ORDERED: NEBULIZER MISCELL ×2 (08:08→08:49)
--- NOTE | 2019-09-05 11:20 | NUR ---
ASSUMED CARE AT 0700. PATIENT IS ALERT AND ORIENTED X4. PATIENT MOVES ALL EXTREMITIES. TRADEMARK AFFIXER ARE EQUAL. LUNGS ARE CLEAR AND DEMINISHED. 02 AT 2L PER N/C. PATIENT HAS RASH ON THE BACK OF HIS NECK, KNEE, ANKLE. PATIENT UP IN W/C FOR MEALS. FALL AND SAFETY PROTOCOLS IN PLACE. DENIES PAIN AT THIS TIME. CONTINUES TO PROGRESS TOWARDS D/C GOALS. WILL CONTINUE TO MONITER. PLAN FAMILY TRAINING AT 1300 WITH . PLAN D/C AFTER TRAINING TO HOME. PATIENT HAS 02 AND NEBULIZER GOING HOME WITH HIM. WILL CONTINUE TO MONITER.
--- NOTE | 2019-09-05 12:13 | NUR ---
FAXED DC ORDERS/SUMMARY TO [facility] RECEIVED CONFIRMATION AND LEFT MSG WITH RADHA IN INTAKE. SHE WILL NOTIFY PT TIME OF VISITS.
--- NOTE | 2019-09-05 12:29 | NUR ---
FAXED SCRIPT FOR HOME NEBULIZER RECEIVED CONFIRMATION PT IS BEING DISMISSED TODAY.
--- NOTE | 2019-09-05 13:47 | NUR ---
team, cont with dc home today; [facility] brought o2 tank for home use. cm notified after [facility] had already delivered oxygen, he needs neb for btx at home. [facility] will deliver btx machine to pt home. ladarius dean. will have training and then he dc home.
--- NOTE | 2019-09-05 14:44 | NUR ---
D/C INSTRUCTIONS GIVEN TO AND PATIENT. SEEN BY Jose Armando AND INSTRUCTIONS GIVEN. PATIENT LEFT UNIT IN GOOD CONDITION WITH WALKER, HOME 02 NEBULIZER TUBING AND ALL OF HIS BELONGINGS VIA W/C TO MEDICAL MALL ENTRANCE.
== END 2019-09-05 14:52 | disposition home health service (06) | DRG 947 ==
PROVIDERS: Nurse Practitioner; ADMIT Physical Medicine & Rehabilitation
DX: R53.81 Other malaise (principal); J96.01 Acute respiratory failure with hypoxia; E43 Unspecified severe protein-calorie malnutrition; J69.0 Pneumonitis due to inhalation of food and vomit; I48.20 Chronic atrial fibrillation, unspecified; D61.818 Other pancytopenia; R13.10 Dysphagia, unspecified; I95.1 Orthostatic hypotension; F03.90 Unspecified dementia, unspecified severity, without behavioral disturbance, psychotic disturbance, mood disturbance, and anxiety; F01.50 Vascular dementia, unspecified severity, without behavioral disturbance, psychotic disturbance, mood disturbance, and anxiety; L30.8 Other specified dermatitis; J44.9 Chronic obstructive pulmonary disease, unspecified; L30.9 Dermatitis, unspecified; E03.9 Hypothyroidism, unspecified; Z87.891 Personal history of nicotine dependence; Z68.21 Body mass index [BMI] 21.0-21.9, adult; Z79.899 Other long term (current) drug therapy
CPT/HCPCS: 10112

== ENCOUNTER 2020-01-02 15:53 | Inpatient (IN) | payer OTHER ==
[~2020-01-02] VITALS: Ht 175.3 cm; Wt 70.0 kg
[~2020-01-02 15:53] MED LIST changes: +AUGMENTIN 875-1 EACH PO; +CELLCEPT 250 M250 MG PO; +IPRAT-ALBUT 0.5-3 ML INH; +IRON325 PO; +LAMISIL AT 1% C12 G1 TOP; +MIDODRINE HCL 55 M1 PO; +MUCINEX600 MG PO; +NEBULIZER MISCELL
[2020-01-02 16:01] VITALS: BP 114/69
[2020-01-02 16:42] LABS: ABSOLUTE NEUTROPHILS 2.7 thou/uL (1.4-8.2); BASOPHILS 0.9 % (0.0-2.0); EOSINOPHILS 0.1 % (0.0-3.0); HEMATOCRIT 28.2 % (42.0-52.0); HEMOGLOBIN 9.1 gm/dL (14.0-18.0); LYMPHOCYTES 7.8 % (24.0-44.0); MCH 24.9 pg (26.0-34.0); MCHC 32.1 g/dL (28.0-37.0); MCV 77.5 fL (80.0-100.0); MONOCYTES 6.5 % (1.0-8.0); PLATELET COUNT 84 thou/uL (150-400); POLYS 84.7 % (36.0-66.0); RBC 3.64 mil/uL (4.50-6.00); RDW 17.5 % (10.5-14.5); WBC 3.1 thou/uL (4.0-11.0)
--- NOTE | 2020-01-02 16:42 | EKG ---
[facility] [place] [address] ELECTROCARDIOGRAM REPORT Name: AARON SEVERINO Room #: PRE M.R.#: [id number] Admission: Attend Phys: Discharge: Date of : 36 Report #: [id number] THIS REPORT FOR: cc: Avi Ha MD [facility] ~ THIS REPORT FOR: //name// [facility] ED Test Date: 2020-01-02 Test Time: 16:24:00 Pat Name: AARON SEVERINO Department: Room: Gender: M Guest Request Runner: BRAXTONMarlena IBARRA : 1940 Requested By: Marcell Luis Order Number: [id number] MD: Avi Ha Measurements Intervals [place] Rate: 98 P: CA: QRS: 31 QRSD: 99 T: 0 QT: 350 QTc: 447 Interpretive Statements Atrial fibrillation Frequent premature ventricular complexes Low voltage, extremity leads Poor R wave progression Compared to ECG 08/16/2019 08:08:15 Ventricular premature complex(es) now present Electronically Signed On 01-02-2020 16:42:03 CDT by Avi Ha [email or web address] <ELECTRONICALLY SIGNED> By: Avi Ha MD, FAC 01/02/20 1642 1624 1624 Avi Ha MD, [facility] /EPI
[2020-01-02 16:55] LABS: CALCIUM 7.8 mg/dL (8.5-10.1); CREATININE 0.6 mg/dL (0.7-1.3); POTASSIUM 4.2 mmol/L (3.5-5.1)
[2020-01-02 16:57] VITALS: BP 114/69
[2020-01-02 17:01] LABS: ALBUMIN 2.6 g/dL (3.4-5.0); TOTAL BILIRUBIN 0.8 mg/dL (0.2-1.0); TOTAL PROTEIN 6.3 g/dL (6.4-8.2)
[2020-01-02] MEDS ORDERED: RAYOS5 MG PO (17:47)
[2020-01-02 19:12] LABS: URINE BILIRUBIN 1+ (Negative); URINE BLOOD NEGATIVE (Negative); URINE CLARITY CLEAR; URINE COLOR YELLOW; URINE GLUCOSE-RANDOM* NEGATIVE (Negative); URINE KETONES NEGATIVE (Negative); URINE LEUKOCYTES-REFLEX NEGATIVE (Negative); URINE NITRITE-REFLEX NEGATIVE (Negative); URINE PROTEIN (DIPSTICK) 1+ (Negative); URINE SPECIFIC GRAVITY >= 1.030 (1.005-1.035)
[2020-01-02 19:18] LABS: ICTOTEST (BILI CONFIRMATORY) Negative (Negative)
[2020-01-02 19:19] LABS: BACTERIA-REFLEX None Seen /HPF (None Seen); CRYSTALS None Seen /LPF (None Seen); SQUAMOUS 0-3 Few /LPF (0-3); URINE RBC None Seen /HPF (0-2); URINE WBC-REFLEX None Seen /HPF (0-5)
--- NOTE | 2020-01-02 20:14 | NUR ---
CAlled to give report, was left waiting for RN for over 7 minutes. Finally a RN informed me assigned RN will call me when he finishes with a Pt
[2020-01-02 20:25] VITALS: BP 114/72
[2020-01-02 21:00] VITALS: BP 105/62
--- NOTE | 2020-01-03 02:15 | NUR ---
PT NEW ADMIT FROM ER 2029. ALERT AND ORIENTED X1. DENIES PAIN BUT EXTREME SOB AT TIME OF ADMISSION. 02 4 L BASELINE AT HOME. O2 TURNED TO 6 L AT ADMISSION TO KEEP SATS ABOVE 90. PT WAS SO TACHYPNEIC , BREATHING >30, AND CRACKLE IN ALL LUNG EM. ASSEMBLER GARMENT FORM NOTIFIED. BNP ORDERED. ONETIME LASIX 20MG GIVEN. MAG ALSO REPLACED. PT CURRENTLY ON OPTIFLOW, 50L 55 FIO2. DENIES PAIN, DENIES CHEST DISCOMFORT. WILL CONTINUE TO MONITOR AND FOLLOW POC.
[2020-01-03 04:00] VITALS: BP 98/52
--- NOTE | 2020-01-03 04:47 | NUR ---
PT TRANSFERED FROM AT 0355. PT DROWSY, ORIENTED X4. PT DENIES ANY PAIN OR SOA AT THIS TIME. VSS. PT ON OPTIFLOW WITH O2 SAT 100%. VSS. WILL CONTINUE TO MONITOR.
[2020-01-03 05:49] LABS: HEMATOCRIT 28.2 % (42.0-52.0); HEMOGLOBIN 8.9 gm/dL (14.0-18.0); MCH 25.1 pg (26.0-34.0); MCHC 31.7 g/dL (28.0-37.0); MCV 79.3 fL (80.0-100.0); RBC 3.56 mil/uL (4.50-6.00); RDW 18.2 % (10.5-14.5); WBC 3.4 thou/uL (4.0-11.0)
[2020-01-03 06:10] LABS: CALCIUM 7.8 mg/dL (8.5-10.1); CREATININE 0.5 mg/dL (0.7-1.3); MAGNESIUM 1.7 mg/dL (1.8-2.4); POTASSIUM 3.9 mmol/L (3.5-5.1)
[2020-01-03 07:14] LABS: D-DIMER 1.4 ug/mLFEU (0.19-0.50); INR 1.2; PROTIME 11.8 Seconds (9.3-11.4)
[2020-01-03 08:37] VITALS: BP 110/68
--- NOTE | 2020-01-03 11:12 | NUR ---
CM COMPLETED INITIAL ASSESSMENT TO DISCUSS D/C PLANNING. SORAIDA SPK W/PT'S , SD. PT COMPLETED HH PT ABOUT "FOUR TO FIVE WEEKS AGO." PT AND CONT TO DO EXERCISE TAUGHT BY PHONEIX. ABOUT A WEEK OR SO AGO PT BEGIN TO DECREASE IN STRENGTH AND INCENTIVE. PT HAS HX AT [facility] 2019, AND [facility]. PT HAS HOME O2, NEBULIZER AND WALKER. HAS PRIVATE DUTY C/G SHE USES PRN WHEN SHE HAS TO GO INTO THE OFFICE, BUT SHE USUALLY WORKS FROM HOME. RECEIVES EMOTIONAL SUPPORT FROM HER SISTERS. SD'S CELL # IS [phone].
[2020-01-03 11:43] VITALS: BP 116/79
[2020-01-03 16:19] VITALS: BP 116/79
--- NOTE | 2020-01-03 18:11 | NUR ---
ASSUMED CARE OF PT AT SHIFT CHANGE. ASSESSMENTS CHARTED. MEDS GIVEN PER JUL. PT A&OX4 IN THE MORNING, BUT BECAME CONFUSED REGARDING PLACE AND TIME LATER IN THE DAY. PT ON 50L HIGH FLOW NC, FIO2 55%. TACHYCARDIC, OCCASIONALLY INTO 120S FOR SHORT PERIODS. FIRST COVID TEST WAS NEGATIVE, A SECOND ONE WAS ORDER AND IS PENDING. PLAN TO CONTINUE 02 SUPP, IV LASIX AND POSSILBE THORACENTESIS IN THE MORNING. WILL CONTINUE TO MONITOR.
[2020-01-03 19:49] VITALS: BP 105/50
[2020-01-04] VITALS (11 sets, daily range): BP systolic 101–118; BP diastolic 49–79
--- NOTE | 2020-01-04 03:45 | NUR ---
ASSUMED CARE FROM DAY SHIFT, PT ALERT TO SELF AND SITUATION. PT CALLING OFTEN TO GET REPOSITION, SAT 100 % ON OPTOFLOW PT TOLERATING WELL. VOIDING CLEAR YELLOW URINE. NOTED INCREASED WEAKNESS. RESTED WELL THROUGHOUT HOURLY ROUNDS WILL CONITINUEWITH CURRENT PLAN CARE.
[2020-01-04 05:30] LABS: CALCIUM 8.2 mg/dL (8.5-10.1); CREATININE 0.6 mg/dL (0.7-1.3); MAGNESIUM 1.8 mg/dL (1.8-2.4); POTASSIUM 4.5 mmol/L (3.5-5.1)
[2020-01-04 05:35] LABS: HEMATOCRIT 28.8 % (42.0-52.0); HEMOGLOBIN 9.1 gm/dL (14.0-18.0); MCH 24.8 pg (26.0-34.0); MCHC 31.5 g/dL (28.0-37.0); MCV 78.6 fL (80.0-100.0); RBC 3.66 mil/uL (4.50-6.00); WBC 4.6 thou/uL (4.0-11.0)
[2020-01-04 07:40] LABS: BE(vivo) 5.1 mmol/L (-2 to +3); HCO3 36.3 mmol/L (22.0-26.0); PO2 159.8 mmHg (80.0-100.0); sO2 98.4 % (92.0-98.0)
[2020-01-04 07:41] LABS: PCO2 103.8 mmHg (35.0-45.0); pH 7.162 (7.360-7.450)
--- NOTE | 2020-01-04 07:43 | NUR ---
ORDERS RECEIVED FOR EVAL AND TREAT HOWEVER Pt TRANSFERRED TO ICU. WILL PLACE ON HOLD AND AWAIT NEW ORDERS WHEN APPROPRIATE
--- NOTE | 2020-01-04 07:55 | NUR ---
ORDERS RECEIVED FOR OT EVAL AND TREAT, PATIENT TRANSFER TO ICU, WILL NEED NEW ORDERS WHEN APPROPRIATE FOR OT INTERVENTIONS
--- NOTE | 2020-01-04 08:54 | NUR ---
ASSUMED CARE AT 0815, ASSESSMENT AND VITAL SIGNS COMPLETED PER ICU PROTOCOL. PT TRANSPORTED FROM BY RN AND RT ON HIGH FLOW NC. DR. COON PAGED AND NOTIFIED OF TRANSFER, PT PLACED ON BIPAP AND BLOOD GAS TO BE DRAWN. RN WILL CONTINUE TO MONITOR. PT'S , ELISE, CALLED AND NOTIFED OF TRANSFER WELL.
--- NOTE | 2020-01-04 10:09 | EKG ---
[facility] [place] [address] ELECTROCARDIOGRAM REPORT Name: AARON SEVERINO Room #: 241-P ADM IN M.R.#: [id number] Admission: 01/02/20 Attend Phys: Kadeem Curry MD Discharge: Date of : 36 Report #: [id number] THIS REPORT FOR: cc: Tyrone Pichardo MD, Bradley MD Lammoglia,Alvin Hernandez MD ~ THIS REPORT FOR: //name// [facility] Test Date: 2020-01-04 Test Time: 08:30:06 Pat Name: AARON SEVERINO Department: Room: [facility] Gender: M Brick Loader: LAURIE : 1940 Requested By: Kadeem Curry Order Number: [id number] MD: Alvin Mcgee Measurements Intervals [place] Rate: 85 P: SC: QRS: -26 QRSD: 89 T: 1 QT: 361 QTc: 430 Interpretive Statements Atrial fibrillation PVC versus Nuno beats Borderline left axis deviation Low voltage, extremity leads Poor R wave progression Nonspecific ST-T wave exchange operator(s) aVF were not used for morphology analysis Baseline wander in lead(s) V6 Compared to ECG 01/02/2020 16:24:00 No significant change Electronically Signed On 01-04-2020 10:09:28 CDT by Alvin Mcgee [email or web address] <ELECTRONICALLY SIGNED> By: Alvin Mcgee MD 01/04/20 1009 9 9 Alvin Mcgee MD /EPI
[2020-01-04 10:27] LABS: BE(vivo) 6.3 mmol/L (-2 to +3); HCO3 34.2 mmol/L (22.0-26.0); PO2 72.6 mmHg (80.0-100.0); sO2 92.7 % (92.0-98.0)
[2020-01-04 10:32] LABS: PCO2 69.2 mmHg (35.0-45.0); pH 7.312 (7.360-7.450)
--- NOTE | 2020-01-04 11:21 | NUR ---
GRASSROOTS ORGANIZER initiated due to low sats & SOA-see flowsheet
--- NOTE | 2020-01-04 11:51 | NUR ---
CONSULTED TO PLACE A LINE FOR A PATIENT NEEDING ADDITIONAL ACCESS. THIS PATIENT IS UNABLE TO TOLERATE CENTRAL LINE PLACEMENT AND CONFIRMED WITH DR. ALMAZAN PICC PLACEMENT IS ACCEPTABLE. DISCUSSED WITH THE PATIENT AND CONSENT WAS NOTED FROM [facility]. THE PATIENT IS UNABLE TO FOLLOW DIRESTION. A RIGHT BASILIC WAS WIDLEY PATENT. A #5F TRIPLE LUMEN POWER PICC WAS PLACED AFTER A BEDSIDE TIMEOUT WAS COMPLETED. THE PICC WAS TRIMMED TO 42CM AND ADVANCED WITHOUT DIFFICULTY. A STAT CHEST XRAY WAS ORDERED FOR CONFIRMATION
--- NOTE | 2020-01-04 14:02 | EKG ---
[facility] [place] [address] ELECTROCARDIOGRAM REPORT Name: AARON SEVERINO Room #: 241-P ADM IN M.R.#: [id number] Admission: 01/02/20 Attend Phys: Kadeem Curry MD Discharge: Date of : 36 Report #: [id number] THIS REPORT FOR: cc: Tyrone Pichardo MD, Bradley MD Lammoglia,Alvin Hernandez MD ~ THIS REPORT FOR: //name// [facility] Test Date: 2020-01-04 Test Time: 07:32:23 Pat Name: AARON SEVERINO Department: Room: 241 P Gender: M Rollway Worker: heydi : 1940 Requested By: Kadeem Curry Order Number: [id number] MD: Alvin Mcgee Measurements Intervals [place] Rate: 96 P: IN: QRS: -30 QRSD: 57 T: QT: 441 QTc: 558 Interpretive Statements Incomplete analysis due to missing data in precordial lead(s) Atrial fibrillation Low voltage, extremity leads Nonspecific S/T abnormalities, lateral leads Baseline wander in lead(s) V5 Missing lead(s): V1,V3 Compared to ECG 01/02/2020 16:24:00 No significant changes with the exception of absence of PVCs versus Nuno beats Electronically Signed On 01-04-2020 14:02:10 CDT by Alvin Mcgee [email or web address] <ELECTRONICALLY SIGNED> By: Alvin Mcgee MD 01/04/20 1402 1 1 Alvin Mcgee MD /EPI
[2020-01-05] VITALS (45 sets, daily range): BP systolic 106–136; BP diastolic 65–84
[2020-01-05 05:27] LABS: HEMOGLOBIN 9.2 gm/dL (14.0-18.0); MCHC 31.7 g/dL (28.0-37.0); MCV 78.8 fL (80.0-100.0); RBC 3.68 mil/uL (4.50-6.00); RDW 17.9 % (10.5-14.5); WBC 7.5 thou/uL (4.0-11.0)
[2020-01-05 05:30] LABS: CALCIUM 8.2 mg/dL (8.5-10.1); CREATININE 0.4 mg/dL (0.7-1.3); POTASSIUM 4.4 mmol/L (3.5-5.1)
--- NOTE | 2020-01-05 13:50 | NUR ---
1350- Patient placed back on bipap for this time. He had a large bowel movement in which two nurses were cleaning him up. When he turned to his left side, he desaturated into the lower 40's. He started mottling, turning blue. Nurse then sat him back up and expressed to take deep breaths through his nose and blow out his mouth. When he did this, his oxygenation increased to the 70's, then the 80's. With the assistance of RT, patient was placed on bipap. His oxygenation immediately elevated to 100%. He is resting at this time.
--- NOTE | 2020-01-05 14:08 | NUR ---
cm visited with brianna via phone call. nothing reported or that needed cm to pass on to bedside nurse or md's. pt cont to need use of bipap, iv meds. no anticipated dc over the weekend. when speaking with is andreea mendez she stated hope he cont get strong and not need the vent. hope we can get to the dcp. he was up on acute there and it was great so will see what he will need. thank you for calling. will cont following as needed for dc needs.
--- NOTE | 2020-01-05 14:59 | NUR ---
1459- Nurse updated patients , Lauren. Her questions were answered.
--- NOTE | 2020-01-05 23:02 | NUR ---
This RN resumed care of patient at 1900. Pt to be transferred to Pod 2 due to 2 negative COVID19 tests. Pt transfered to room 241 to 246 succefully. I spoke to patients Berta, regarding patient status and moving of rooms. Pts sucessfully updated and patient understands what is happening. Discussed with DORA Royal patients condition and need for a claudio catheter insertion. Also discussed patients agitation and self proclaimed anxiety and that he felt he could not breathe" with his BiPAP on. Started on Precedex and patient now resting comfortably.
[2020-01-06] VITALS (79 sets, daily range): BP systolic 104–124; BP diastolic 59–80
[2020-01-06 05:16] LABS: HEMATOCRIT 28.3 % (42.0-52.0); MCH 25.1 pg (26.0-34.0); MCHC 31.8 g/dL (28.0-37.0); RBC 3.58 mil/uL (4.50-6.00); RDW 18.2 % (10.5-14.5); WBC 8.8 thou/uL (4.0-11.0)
[2020-01-06 05:23] LABS: ANION GAP < 0 mmol/L (7-16); BUN 16 mg/dL (7-18); CALCIUM 8.2 mg/dL (8.5-10.1); CHLORIDE 105 mmol/L (98-107); CO2 41 mmol/L (21-32); CREATININE 0.4 mg/dL (0.7-1.3); GLUCOSE 102 mg/dL (74-106); POTASSIUM 4.7 mmol/L (3.5-5.1); SODIUM 144 mmol/L (136-145)
--- NOTE | 2020-01-06 05:24 | NUR ---
ASSUMED CARE OF PATIENT AT 0100. RESTING IN BED. REMAINS ON BIPAP. PRECEDEX TITRATED FOR ANXIETY. LOW URINE OUTPUT NOTED THIS MORNING. [facility] NOTIFIED. ORDERS RECIEVED. WILL CONTINUE TO MONITOR.
[2020-01-06 06:14] LABS: APTT 31.5 Seconds (24.5-32.8); INR 1.2; PROTIME 12.3 Seconds (9.3-11.4)
--- NOTE | 2020-01-06 17:16 | NUR ---
ASSUMED CARE OF PT AT 0700. PT AWAKE, ALERT AND ORIENTED TIMES TWO. VSS, 35% BIPAP OR 3L HIGH FLOW 02. DRAPER TO DD. DRESSING TO SACRUM CHANGED. PT DENEIS PAIN. PT TOLERATES MEDS. PT HAS POOR APPETITE EATS VERY SMALL PORTIONS OF MEALS. PT AT BEDSIDE FOR MOST OF THE SHIFT. PT SLOWLY PROGRESING TOWRADS POC GOALS.
[2020-01-07] VITALS (60 sets, daily range): BP systolic 0–154; BP diastolic 0–94
[2020-01-07 04:45] LABS: ANION GAP < 0 mmol/L (7-16); BUN 17 mg/dL (7-18); CALCIUM 8.5 mg/dL (8.5-10.1); CHLORIDE 104 mmol/L (98-107); CO2 43 mmol/L (21-32); CREATININE 0.5 mg/dL (0.7-1.3); GLUCOSE 156 mg/dL (74-106); PHOSPHORUS 2.8 mg/dL (2.5-4.9); POTASSIUM 4.4 mmol/L (3.5-5.1); SODIUM 145 mmol/L (136-145); TRIGLYCERIDE 49 mg/dL (<150)
--- NOTE | 2020-01-07 07:21 | NUR ---
PT MAINTAINED WELL ON BIPAP OVERNIGHT , TAKING OCCASIONAL SHORT BREAKS TO DRINK WATER, PT IS GENERALLY ANXIOUS WHEN AWAKE. ELISE () CALLED THIS MORNING AND WAS GIVEN AN UPDATE.
--- NOTE | 2020-01-07 12:33 | NUR ---
NURSE CALLED CHARGE NURSE INTO ROOM PATIENT OXYGENATION DECREASING TO LOW 80% AND PATIENT RESPIRATORY RATE INCREASED TO 40BPM, HE IS MINIMALLY RESPONSIVE. AT BEDSIDE. PATIENT ALREADY ON BIPAP, FIO2 INCREASED TO 100% BY RT. NURSE WAS ABLE TO GET PATIENT TO EXPRESS IF HE WAS IN PAIN. HE EXPRESSED NO THEN DIDN'T RESPOND AWAKE THIS MORNING. HE WAS PULLED UP IN BED. WAS UPDATED ON HIS STATUS AND IS SITTING AT HIS BEDSIDE, HOLDING HIS HAD. O2 SAT PROBE WAS CHANGED. BLOOD GLUCOSE WAS ALREADY ASSESSED. HIS HANDS ARE MOTTLED. HEART RATE 120'S-140'S, RR 40, BP 127/71, O2 SAT 88-93% ON 100'S BIPAP. DR. COON NOTIFIED AND ORDERED FOR MORPHINE 4MG IV PUSH X1, PATIENT IN RESPIRATORY DISTRESS AND EXPRESSED SHE WANTED TO MAKE SURE HE IS COMFORTABLE. DR. COON ALSO EXPRESSED TO START MORPHINE GTT. PATIENT IS A NO CODE AND PHYSICIANS WERE ABLE TO DISCUSS, PRIOR, PATIENTS POOR PROGNOSIS.
--- NOTE | 2020-01-07 18:45 | NUR ---
STARTED MORPHINE GTT AT 1305. PATIENT HAS AGONAL BREATH. AT BEDSIDE. MORPHINT GTT AT 7ML/H NOW. REPORT GIVEN TO BAKARI CHI. WILL KEEP MONITOR.
--- NOTE | 2020-01-07 20:00 | NUR ---
ASSUMED CARE OF PT. ON COMFORT MEASURES. MORPHINE GTT 8 MG FOR PAIN AND COMFORT. ALL MEDS AND O2 DCD. PT HAS AGONAL BREATHING AND IS NONRESPONSIVE. AT BEDSIDE. THEY HAVE BEEN FOR 58 YEARS. AN ADORABLE LITTLE COUPLE. WILL CONBT TO MONITOR.
--- NOTE | 2020-01-07 21:22 | NUR ---
MONITOR SHOWS ASYSTOLE. NO BP NO PULSE NO RESP. PRONOUNCED BY MYSELF Lan TERESA RN AND RICCI GALAN RN. SEE REPORT FOR FURTHER INFO.
== END 2020-01-07 21:22 | DRG 871 ==
LOC: ER 15:53 → EROBS 19:19 → 3W 19:19 → ICU 19:19 → 2N 20:26 → 3W 01-03 04:00 → ICU 01-04 07:36
PROVIDERS: Internal Medicine Pulmonary Disease; Nurse Practitioner; Nurse Practitioner Family; ADMIT Hospitalist; ATTEND Hospitalist
PROC: 5A09357 Assistance with Respiratory Ventilation, Less than 24 Consecutive Hours, Continuous Positive Airway Pressure (ICD-10-PCS; principal; 2020-01-04)
PROC: 5A09357 Assistance with Respiratory Ventilation, Less than 24 Consecutive Hours, Continuous Positive Airway Pressure (ICD-10-PCS; 2020-01-05)
PROC: 5A09357 Assistance with Respiratory Ventilation, Less than 24 Consecutive Hours, Continuous Positive Airway Pressure (ICD-10-PCS; 2020-01-06)
PROC: 5A09357 Assistance with Respiratory Ventilation, Less than 24 Consecutive Hours, Continuous Positive Airway Pressure (ICD-10-PCS; 2020-01-07)
DX: A41.9 Sepsis, unspecified organism (principal); J18.9 Pneumonia, unspecified organism; J96.21 Acute and chronic respiratory failure with hypoxia; I50.31 Acute diastolic (congestive) heart failure; E43 Unspecified severe protein-calorie malnutrition; I48.21 Permanent atrial fibrillation; M84.48XA Pathological fracture, other site, initial encounter for fracture; J44.0 Chronic obstructive pulmonary disease with (acute) lower respiratory infection; I95.9 Hypotension, unspecified; J84.89 Other specified interstitial pulmonary diseases; Z20.828 Contact with and (suspected) exposure to other viral communicable diseases; K21.9 Gastro-esophageal reflux disease without esophagitis; E03.9 Hypothyroidism, unspecified; F03.90 Unspecified dementia, unspecified severity, without behavioral disturbance, psychotic disturbance, mood disturbance, and anxiety; K52.9 Noninfective gastroenteritis and colitis, unspecified; I27.81 Cor pulmonale (chronic); D69.6 Thrombocytopenia, unspecified; D64.9 Anemia, unspecified; D89.9 Disorder involving the immune mechanism, unspecified; Z51.5 Encounter for palliative care; Z66 Do not resuscitate; I50.9 Heart failure, unspecified; J84.10 Pulmonary fibrosis, unspecified; Z87.891 Personal history of nicotine dependence; Z79.899 Other long term (current) drug therapy
CPT/HCPCS: 10078; 10081; 10879; 27000